=== PATIENT | female | born 1995 | race Caucasian/White ===

== ENCOUNTER 2017-09-13 15:00 | Emergency (ER) | payer OTHER ==
[2017-09-13] MEDS ORDERED: NA CHLORIDE 0.9% 1,000 ML ONE (15:54)
[2017-09-13] MEDS ORDERED: ONDANSETRON 4 MG/2 ML VIAL ONE (16:13)
[2017-09-13 16:14] LABS: Absolute Lymphocytes (CBC) 1.3 K/uL (0.7-4.9); Absolute Monocytes 0.7 K/uL (0.1-1.3); Absolute Neutrophil 6.5 K/uL (1.8-8.0); Basophils % 0.3 % (0-1.3); Eosinophils % 0.3 % (0-4.4); Hematocrit 38.1 % (36.0-45.0); Lymphocytes % 15.7 % (15.3-44.8); MCH 28.1 pg (27.0-35.0); MCV 82.2 fL (80-100); MPV 7.6 fL (7.6-11.3); Monocytes % 8.1 % (3.3-12.3); RBC Red Blood Cell Count 4.64 M/uL (3.86-4.86)
[2017-09-13 16:42] LABS: Urine Blood 2+ (NEG); Urine Glucose NEGATIVE (NEG); Urine Protein TRACE (NEG); Urine Specific Gravity 1.025 (1.005-1.030); Urine pH 5.5 (5.0-7.0)
[2017-09-13 16:51] LABS: Potassium 3.7 mmol/L (3.5-5.1)
--- NOTE | 2017-09-13 17:15 | RAD REPORT ---
EXAM DESCRIPTION: US - TRANSVAG OB - 09/13/2017 4:50 pm CLINICAL HISTORY: Abd cramping, ;Vaginal bleeding COMPARISON: None FINDINGS: A single gestational sac is seen within the uterus. The shape of the sac is within normal limits for gestational age. Within the sac is a single pole with crown-rump length of 3 mm, cor relating to estimated gestational age of 5 weeks 6 days gestational age. Estimated date of delivery i s 05/10/2018. Heart rate is 95 BPM.. The maternal adnexa and ovaries are within normal limits. Normal Doppler blood flow was demonstrated to both ovaries. A moderate subchorionic bleed is present measuring 20 x 11 x 8 mm about the posterior aspect of the g estational sac. IMPRESSION: Single live early intrauterine gestation with estimated gestational age of 5 weeks 6 day s, ELENA 05/10/2018. Moderate subchorionic bleed is present.
--- NOTE | 2017-09-13 17:23 | ER ---
Nurse's Notes [facility] Name: Malini Kelley Age: 22 yrs Sex: Female : 1995 Arrival Date: 09/13/2017 Time: 15:02 Bed 28 Private MD: None, None Diagnosis: SUBCHORIONIC HEMORRHAGE; related conditions, unspecified, first trimester Presentation: 09/13 15:07 Presenting complaint: Patient states: LMP- 09/04/17; i noticed bleeding that started an hj hour ago, in between pink and dark red blood, reports ABD cramping; reports nausea;. Transition of care: patient was not received from another setting of care. Onset of symptoms was September 13, 2017. Risk Assessment: Do you want to hurt yourself or someone else? Patient reports no desire to harm self or others. Initial Sepsis Screen: Does the patient meet any 2 criteria? No. Patient's initial sepsis screen is negative. Does the patient have a suspected source of infection? No. Patient's initial sepsis screen is negative. Care prior to arrival: None. 15:07 Method Of Arrival: Ambulatory 15:07 Acuity: MICHELLE 3 hj Triage Assessment: 15:09 General: Appears in no apparent distress. uncomfortable, slender, Behavior is calm, hj cooperative, appropriate for age. Pain: Complains of pain in abdomen. : Reports vaginal bleeding that is. 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 - Social history:: Smoking status: Patient/guardian denies using tobacco, Patient/guardian denies using alcohol. - Ebola Screening: : Patient negative for fever greater than or equal to 101.5 degrees Fahrenheit, and additional compatible Ebola Virus Disease symptoms Patient denies exposure to infectious person Patient denies travel to an Ebola-affected area in the 21 days before illness onset. - Family history:: not pertinent. - Hospitalizations: : No recent hospitalization is reported. - History obtained from: friend. Screenin:09 Abuse screen: Denies threats or abuse. Denies injuries from another. Nutritional hj screening: No deficits noted. Tuberculosis screening: No symptoms or risk factors identified. Fall Risk None identified. Assessment: 16:13 Obstetrical Assessment: General assessment: awake and alert, skin warm and dry. mg2 General: Appears in no apparent distress. comfortable, Behavior is calm, cooperative. Pain: Denies pain. Neuro: Level of Consciousness is awake, alert, obeys commands, Oriented to person, place, time, situation. Cardiovascular: Capillary refill < 3 seconds Patient's skin is warm and dry. Respiratory: Airway is patent Respiratory effort is even, unlabored, Respiratory pattern is regular, symmetrical. GI: Reports nausea. : Reports vaginal bleeding that is spotty. EENT: No signs and/or symptoms were reported regarding the EENT system. Derm: Skin is intact, Skin is pink, warm \T\ dry. normal. Musculoskeletal: Circulation, motion, and sensation intact. 16:57 Reassessment: Patient and/or family updated on plan of care and expected duration. Pain tl3 level reassessed. Patient is alert, oriented x 3, equal unlabored respirations, skin warm/dry/pink. pt just returned from Ultra sound, IV flushed, no needs at this time. Vital Signs: 15:10 BP 136 / 86; Pulse 126; Resp 18; Temp 101.0(TE); Pulse Ox 100% on R/A; Weight 49.44 kg; Height 5 ft. 6 in. (167.64 cm); Pain 1/10; 16:15 BP 114 / 61; Pulse 74; Resp 18; Pulse Ox 100% on R/A; Pain 0/10; mg2 16:56 BP 121 / 69; Pulse 93; Resp 18; Pulse Ox 100% ; tl3 17:15 BP 114 / 70; Pulse 86; Resp 18; Temp 99(O); Pulse Ox 100% ; Pain 0/10; mg2 15:10 Body Mass Index 17.59 (49.44 kg, 167.64 cm) Vitals: 17:31 Heart Tones taken with ob ultrasound. mg2 ED Course: 15:02 Patient arrived in ED. mr 15:02 None, None is Private Physician. mr 15:09 Triage completed. hj 15:09 Arm band placed on right wrist. hj 15:11 Patient has correct armband on for positive identification. Placed in gown. Bed in low hj position. Call light in reach. Side rails up X 1. Adult w/ patient. 15:15 Guerrero Gramajo, RN is Primary Nurse. mg2 15:22 Reny Cary FNP [facility]. kav 15:22 Shaq Aldrich MD is Attending Physician. kav 16:13 Inserted saline lock: 20 gauge in left antecubital area, using aseptic technique. Blood mg2 collected. 16:31 Patient taken to ultrasound. via wheelchair. cy 16:50 TRANSVAG OB In Process Unspecified. EDMS 16:56 Patient moved back from ultrasound. tl3 17:22 Samantha Tiwari MD is Referral Physician. kav 17:30 No provider procedures requiring assistance completed. IV discontinued, intact, mg2 bleeding controlled, No redness/swelling at site. Pressure dressing applied. Administered Medications: 15:55 Drug: NS 0.9% 1000 ml Route: IV; Rate: 1 bolus; Site: left antecubital; mg2 17:20 Follow up: Response: No adverse reaction; IV Status: Completed infusion mg2 16:13 Drug: Zofran 4 mg Route: IVP; Site: left antecubital; mg2 17:20 Follow up: Response: No adverse reaction; Nausea is decreased mg2 Point of Care Testing: Urine : 17:30 hCG Reading: Positive; mg2 Outcome: 17:22 Discharge ordered by . ka 17:30 Discharged to home ambulatory, with family. mg2 17:30 Condition: stable 17:30 Discharge instructions given to patient, family, Instructed on discharge instructions, follow up and referral plans. Demonstrated understanding of instructions, follow-up care. 17:37 Patient left the ED. mg2 Signatures: Dispatcher [employer] EDWA Reny Cary FNP FNP kav Rivera, Maria mr FischerBulmaro RN RN Syed Garza Tammy, RN RN tl3 Guerrero Gramajo, DYLAN RN mg2 Corrections: (The following items were deleted from the chart) 15:11 15:10 Pulse 126bpm; Resp 18bpm; Pulse Ox 100% RA; Temp 101.0F Temporal; 49.44 kg; hj Height 5 ft. 6 in.; BMI: 17.5; Pain 1/10; hj
--- NOTE | 2017-09-13 17:23 | EDPHYS ---
Physician Documentation [facility] Name: Malini Kelley Age: 22 yrs Sex: Female : 1995 Arrival Date: 09/13/2017 Time: 15:02 Bed 28 Private MD: None, None ED Physician Shaq Aldrich HPI: 09/13 15:22 This 22 yrs old Female presents to ER via Ambulatory with complaints of kav Vaginal Bleeding, + Preg <12wks. 15:42 The patient presents to the emergency department with vaginal bleeding, that is kav moderate. course: care: none, Leakage of Fluid: none appreciated, Ultrasound: the patient has not had an ultrasound, Risk/complications: no obvious risks or complications are appreciated. Previous pregnancies: in previous pregnancies patient has had vaginal delivery. Associated signs and symptoms: Pertinent positives: nausea, vaginal bleeding. The patient has not experienced similar symptoms in the past. The patient has not recently seen a physician. 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 - Social history:: Smoking status: Patient/guardian denies using tobacco, Patient/guardian denies using alcohol. - Ebola Screening: : Patient negative for fever greater than or equal to 101.5 degrees Fahrenheit, and additional compatible Ebola Virus Disease symptoms Patient denies exposure to infectious person Patient denies travel to an Ebola-affected area in the 21 days before illness onset. - Family history:: not pertinent. - Hospitalizations: : No recent hospitalization is reported. - History obtained from: friend. ROS: 15:47 Constitutional: Negative for fever, chills, and weight loss, Eyes: Negative for injury, kav pain, redness, and discharge, ENT: Negative for injury, pain, and discharge, Neck: Negative for injury, pain, and swelling, Cardiovascular: Negative for chest pain, palpitations, and edema, Respiratory: Negative for shortness of breath, cough, wheezing, and pleuritic chest pain, Abdomen/GI: Negative for abdominal pain, nausea, vomiting, diarrhea, and constipation, Back: Negative for injury and pain, MS/Extremity: Negative for injury and deformity, Skin: Negative for injury, rash, and discoloration, Neuro: Negative for headache, weakness, numbness, tingling, and seizure, Psych: Negative for depression, anxiety, suicide ideation, homicidal ideation, and hallucinations, Allergy/Immunology: Negative for hives, rash, and allergies, Endocrine: Negative for neck swelling, polydipsia, polyuria, polyphagia, and marked weight changes, Hematologic/Lymphatic: Negative for swollen nodes, abnormal bleeding, and unusual bruising. 15:47 : Positive for vaginal bleeding. Exam: 15:47 Constitutional: This is a well developed, well nourished patient who is awake, alert, kav and in no acute distress. Head/Face: Normocephalic, atraumatic. Eyes: Pupils equal round and reactive to light, extra-ocular motions intact. Lids and lashes normal. Conjunctiva and sclera are non-icteric and not injected. Cornea within normal limits. Periorbital areas with no swelling, redness, or edema. ENT: Nares patent. No nasal discharge, no septal abnormalities noted. Tympanic membranes are normal and external auditory canals are clear. Oropharynx with no redness, swelling, or masses, exudates, or evidence of obstruction, uvula midline. Mucous membranes moist. Neck: Trachea midline, no thyromegaly or masses palpated, and no cervical lymphadenopathy. Supple, full range of motion without nuchal rigidity, or vertebral point tenderness. No Meningismus. Chest/axilla: Normal chest wall appearance and motion. Nontender with no deformity. No lesions are appreciated. Cardiovascular: Regular rate and rhythm with a normal S1 and S2. No gallops, murmurs, or rubs. Normal PMI, no JVD. No pulse deficits. Respiratory: Lungs have equal breath sounds bilaterally, clear to auscultation and percussion. No rales, rhonchi or wheezes noted. No increased work of breathing, no retractions or nasal flaring. Abdomen/GI: Soft, non-tender, with normal bowel sounds. No distension or tympany. No guarding or rebound. No evidence of tenderness throughout. Back: No spinal tenderness. No costovertebral tenderness. Full range of motion. Skin: Warm, dry with normal turgor. Normal color with no rashes, no lesions, and no evidence of cellulitis. MS/ Extremity: Pulses equal, no cyanosis. Neurovascular intact. Full, normal range of motion. Neuro: Awake and alert, GCS 15, oriented to person, place, time, and situation. Cranial nerves II-XII grossly intact. Motor strength 5/5 in all extremities. Sensory grossly intact. Cerebellar exam normal. Normal gait. Psych: Awake, alert, with orientation to person, place and time. Behavior, mood, and affect are within normal limits. 15:47 : Sexual behavior: the patient is sexually active, and reports a single partner. Vital Signs: 15:10 BP 136 / 86; Pulse 126; Resp 18; Temp 101.0(TE); Pulse Ox 100% on R/A; Weight 49.44 kg; hj Height 5 ft. 6 in. (167.64 cm); Pain 1/10; 16:15 BP 114 / 61; Pulse 74; Resp 18; Pulse Ox 100% on R/A; Pain 0/10; mg2 16:56 BP 121 / 69; Pulse 93; Resp 18; Pulse Ox 100% ; tl3 17:15 BP 114 / 70; Pulse 86; Resp 18; Temp 99(O); Pulse Ox 100% ; Pain 0/10; mg2 15:10 Body Mass Index 17.59 (49.44 kg, 167.64 cm) MDM: 15:37 Medical screening is not applicable. [facility] 15:47 Data reviewed: vital signs, nurses notes. ka 16:46 ED course: awaiting lab results and vaginal US probe study. ka 16:49 ED course: received reports from Henable tech: 5 weeks 6 days with HR 95 bpm \\T\\ subchorionic kav bleed right inferior approximately 2 cm. 17:04 Physician consultation: Samantha Tiwari MD was called at 17:04. [facility] 17:10 Physician consultation: was contacted at 17:10, regarding patient's condition, dr. hudson lawernce recommends "...follow up with your obgyn/[facility] in 1 week for further evaluation and treatment and for a follow up ultra sound". 09/13 15:34 Order name: Urine Dipstick--Ancillary (enter results); Complete Time: 16:45 eb 09/13 15:34 Order name: Urine --Ancillary (enter results); Complete Time: 16:45 eb 09/13 15:36 Order name: Abo/rh Typing; Complete Time: 17:13 kav 09/13 15:36 Order name: HCG-Quantitative; Complete Time: 17:13 kav 09/13 15:36 Order name: Basic Metabolic Panel; Complete Time: 17:13 kav 09/13 15:36 Order name: CBC with Diff; Complete Time: 16:30 kav 09/13 15:12 Order name: Urine Dipstick-Ancillary (obtain specimen); Complete Time: 15:55 hj 09/13 15:12 Order name: Urine Test (obtain specimen); Complete Time: 15:55 hj 09/13 15:36 Order name: IV Saline Lock; Complete Time: 15:55 kav 09/13 15:36 Order name: Labs collected and sent; Complete Time: 15:55 kav 09/13 16:32 Order name: TRANSVAG OB; Complete Time: 17:20 EDMS 09/13 15:36 Order name: NPO; Complete Time: 15:55 kav Administered Medications: 15:55 Drug: NS 0.9% 1000 ml Route: IV; Rate: 1 bolus; Site: left antecubital; mg2 17:20 Follow up: Response: No adverse reaction; IV Status: Completed infusion mg2 16:13 Drug: Zofran 4 mg Route: IVP; Site: left antecubital; mg2 17:20 Follow up: Response: No adverse reaction; Nausea is decreased mg2 Point of Care Testing: Urine : 17:30 hCG Reading: Positive; mg2 Disposition: 09/13/17 17:22 Discharged to Home. Impression: SUBCHORIONIC HEMORRHAGE, related conditions, unspecified, first trimester. - Condition is Stable. - Discharge Instructions: First Trimester of , [id number], Subchorionic Hematoma, Abdominal Pain During , Xeoy-pt-Wgry. - Medication Reconciliation Form, Thank You Letter, Antibiotic Education, Prescription Opioid Use form. - Follow up: Mini Rekhi; When: 5 - 6 days; Reason: Recheck today's complaints, Continuance of care, Re-evaluation by your physician. - Problem is new. - Symptoms have improved. - Notes: F/U WITH YOUR OBGYN/[facility] IN 3-5 DAYS FOR POST-ED EVALUATION AND TREATMENT AND FOR REPEAT ULTRASOUND AVOID STRENUOUS ACTIVITY UNTIL F/U APPT WITH OBGYN Addendum: 09/20/2017 08:00 Co-signature as Attending Physician, Shaq Aldrich MD I agree with the assessment and k dr plan of care. Signatures: Dispatcher [employer] [facility] Shaq Aldrich MD MD kdr Vern, Katherine, MINE ENGINEER MINE ENGINEER kaBulmaro Cai, RN RN hj Guerrero Gramajo, RN RN mg2 Corrections: (The following items were deleted from the chart) 09/13 16:32 15:53 Transvaginal Study (Probe)+US.RAD.BRZ ordered. [facility] 17:37 17:22 09/13/2017 17:22 Discharged to Home. Impression: SUBCHORIONIC HEMORRHAGE; mg2 related conditions, unspecified, first trimester. Condition is Stable. Discharge Instructions: First Trimester of , Ifsy-on-Nykw, Subchorionic Hematoma, Abdominal Pain During , Kovl-ez-Rwat. Forms are Medication Reconciliation Form, Thank You Letter, Antibiotic Education, Prescription Opioid Use. Follow up: Mini Rekhi; When: 5 - 6 days; Reason: Recheck today's complaints, Continuance of care, Re-evaluation by your physician. Problem is new. Symptoms have improved. kav
== END 2017-09-13 17:37 | disposition home or self-care (01) ==
LOC: ER 15:00
DX: O20.9 Hemorrhage in early pregnancy, unspecified (principal); Z3A.01 Less than 8 weeks gestation of pregnancy
CPT/HCPCS: 36415; 76813; 80048; 81003; 81025; 84702; 85025; 86900; 86901; 96361; 96374; 99284; J2405; J7030

== ENCOUNTER 2018-10-06 10:07 | Emergency (ER) | payer BC, OTHER, SELFPAY ==
--- OUTSIDE RECORDS SUMMARY | 2018-10-06 10:10 | XMS REPORT ---
:1995 [facility] Address [address] [place] [address] Dr. Fernandez [address] [place] [id number] Care Team Providers Name Role Phone Unavailable Unavailable Unavailable Problems This patient has no known problems. Allergies, Adverse Reactions, Alerts This patient has no known allergies or adverse reactions. Medications This patient has no known medications.
[2018-10-06 11:24] LABS: BUN Blood Urea Nitrogen 8 mg/dL (7-18); Bicarbonate 24 mmol/L (21-32); Glucose Level 93 mg/dL (74-106); HCG, Quantitative 10 mIU/mL (1-3); Potassium 3.9 mmol/L (3.5-5.1); Sodium Level 141 mmol/L (136-145)
[2018-10-06 11:29] LABS: Absolute Lymphocytes (CBC) 1.1 K/uL (0.7-4.9); Basophils % 0.4 % (0-1.3); Hematocrit 37.3 % (36.0-45.0); Lymphocytes % 19.2 % (15.3-44.8); MPV 7.8 fL (7.6-11.3); RBC Red Blood Cell Count 4.94 M/uL (3.86-4.86)
[2018-10-06 11:56] LABS: Urine Blood 3+ (NEG); Urine Glucose NEGATIVE (NEG); Urine Protein NEGATIVE (NEG); Urine Specific Gravity 1.015 (1.005-1.030); Urine pH 5.5 (5.0-7.0)
--- NOTE | 2018-10-06 12:31 | RAD REPORT ---
EXAM DESCRIPTION: US - Transvaginal OB - 10/06/2018 12:21 pm CLINICAL HISTORY: with vaginal bleeding COMPARISON: None. FINDINGS: The uterus 7 x 5 x 6 centimeters. The endometrial stripe measures 7 millimeters. A gestat ional sac is not seen. Ovaries are normal in size and echotexture.. An adnexal mass is not noted. No significant free fluid IMPRESSION: Nonvisualization of a gestational sac within the endometrium. These findings could represent an early intrauterine in which the gestational sac is not se en. and even an ectopic can also result in this appearance. This all should be cor related clinically and with serial beta HCG levels. Followup endovaginal sonogram in 1 week recommend ed
--- NOTE | 2018-10-06 12:53 | EDPHYS ---
[facility] Name: Malini Kelley Age: 23 yrs Sex: Female : 1995 Arrival Date: 10/06/2018 Time: 10:08 Bed 19 Private MD: ED Physician Stalin Barry HPI: 10/06 11:42 This 23 yrs old Female presents to ER via Ambulatory with complaints of snw Vaginal Bleeding, + Preg <12wks. 11:42 The patient presents with vaginal bleeding that is. Onset: The symptoms/episode snw began/occurred suddenly, last night. Modifying factors: The symptoms are alleviated by nothing, the symptoms are aggravated by nothing. Associated signs and symptoms: The patient has no apparent associated signs or symptoms. Severity of symptoms: At their worst the symptoms were mild. The patient has not experienced similar symptoms in the past. The patient has not recently seen a physician. pt approximately 4 weeks , started spotting last pm, painless. Today UPT negative, qHCG 10. 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 - Social history:: Smoking status: Patient/guardian denies using tobacco. - Ebola Screening: : Patient denies exposure to infectious person Patient denies travel to an Ebola-affected area in the 21 days before illness onset. ROS: 11:41 Constitutional: Negative for fever, chills, and weight loss, Eyes: Negative for injury, snw pain, redness, and discharge, ENT: Negative for injury, pain, and discharge, Neck: Negative for injury, pain, and swelling, Cardiovascular: Negative for chest pain, palpitations, and edema, Respiratory: Negative for shortness of breath, cough, wheezing, and pleuritic chest pain, Abdomen/GI: Negative for abdominal pain, nausea, vomiting, diarrhea, and constipation, Back: Negative for injury and pain, MS/Extremity: Negative for injury and deformity, Skin: Negative for injury, rash, and discoloration, Neuro: Negative for headache, weakness, numbness, tingling, and seizure. 11:41 : Positive for vaginal bleeding, scant spotting yesterday with more bleeding today, no clots, no pain. Exam: 11:41 Constitutional: This is a well developed, well nourished patient who is awake, alert, snw and in no acute distress. Head/Face: Normocephalic, atraumatic. Eyes: Pupils equal round and reactive to light, extra-ocular motions intact. Lids and lashes normal. Conjunctiva and sclera are non-icteric and not injected. Cornea within normal limits. Periorbital areas with no swelling, redness, or edema. ENT: Nares patent. No nasal discharge, no septal abnormalities noted. Tympanic membranes are normal and external auditory canals are clear. Oropharynx with no redness, swelling, or masses, exudates, or evidence of obstruction, uvula midline. Mucous membranes moist. Neck: Trachea midline, no thyromegaly or masses palpated, and no cervical lymphadenopathy. Supple, full range of motion without nuchal rigidity, or vertebral point tenderness. No Meningismus. Chest/axilla: Normal chest wall appearance and motion. Nontender with no deformity. No lesions are appreciated. Cardiovascular: Regular rate and rhythm with a normal S1 and S2. No gallops, murmurs, or rubs. Normal PMI, no JVD. No pulse deficits. Respiratory: Lungs have equal breath sounds bilaterally, clear to auscultation and percussion. No rales, rhonchi or wheezes noted. No increased work of breathing, no retractions or nasal flaring. Abdomen/GI: Soft, non-tender, with normal bowel sounds. No distension or tympany. No guarding or rebound. No evidence of tenderness throughout. Back: No spinal tenderness. No costovertebral tenderness. Full range of motion. Skin: Warm, dry with normal turgor. Normal color with no rashes, no lesions, and no evidence of cellulitis. MS/ Extremity: Pulses equal, no cyanosis. Neurovascular intact. Full, normal range of motion. Neuro: Awake and alert, GCS 15, oriented to person, place, time, and situation. Cranial nerves II-XII grossly intact. Motor strength 5/5 in all extremities. Sensory grossly intact. Cerebellar exam normal. Normal gait. Psych: Awake, alert, with orientation to person, place and time. Behavior, mood, and affect are within normal limits. Vital Signs: 10:29 BP 145 / 88; Pulse 84; Resp 16; Temp 98.4(TE); Pulse Ox 100% on R/A; Weight 57.61 kg; ss Height 5 ft. 6 in. (167.64 cm); Pain 0/10; 12:15 BP 118 / 85; Pulse 105; Resp 15 S; Temp 98.8; Pulse Ox 99% on R/A; ca1 13:09 BP 118 / 85; Pulse 98; Resp 18 S; Pulse Ox 100% ; ca1 10:29 Body Mass Index 20.50 (57.61 kg, 167.64 cm) ss MDM: 10:51 Patient medically screened. snw 12:52 Data reviewed: vital signs, nurses notes. Data interpreted: Pulse oximetry: on room air snw is 99 %. Counseling: I had a detailed discussion with the patient and/or guardian regarding: the historical points, exam findings, and any diagnostic results supporting the discharge/admit diagnosis, lab results, radiology results, the need for outpatient follow up, to return to the emergency department if symptoms worsen or persist or if there are any questions or concerns that arise at home. Special discussion: Based on the history and exam findings, there is no indication for further emergent testing or inpatient evaluation. I discussed with the patient/guardian the need to see the OB Gyne specialist for further evaluation of the symptoms. 10/06 10:39 Order name: Quantitative Hcg; Complete Time: 11:25 snw 10/06 10:39 Order name: Abo/rh Typing; Complete Time: 11:14 snw 10/06 10:39 Order name: Basic Metabolic Panel; Complete Time: 11:25 snw 10/06 10:39 Order name: CBC with Diff; Complete Time: 11:31 snw 10/06 11:18 Order name: Urine Dipstick--Ancillary (enter results); Complete Time: 12:02 eb 10/06 10:39 Order name: Urine Test (obtain specimen); Complete Time: 11:16 snw 10/06 10:39 Order name: IV Saline Lock; Complete Time: 10:58 snw 10/06 10:39 Order name: Labs collected and sent; Complete Time: 10:58 snw 10/06 10:39 Order name: NPO; Complete Time: 10:58 snw 10/06 10:39 Order name: Urine Dipstick-Ancillary (obtain specimen); Complete Time: 11:15 snw 10/06 11:18 Order name: Urine --Ancillary (enter results); Complete Time: 12:02 eb 10/06 11:30 Order name: US Transvaginal Ob; Complete Time: 12:49 snw Administered Medications: No medications were administered Disposition: 10/06/18 12:51 Discharged to Home. Impression: related conditions, unspecified, Threatened . - Condition is Stable. - Discharge Instructions: Threatened Miscarriage, Vaginal Bleeding During , First Trimester, First Trimester of , Pelvic Rest. - Prescriptions for Vitamin 27- 0.8 mg Oral Tablet - take 1 tablet by ORAL route once daily; 60 tablet. - Medication Reconciliation Form, Thank You Letter, Antibiotic Education, Prescription Opioid Use form. - Follow up: Private Physician; When: 2 - 3 days; Reason: Recheck today's complaints, Continuance of care, Re-evaluation by your physician. Follow up: Emergency Department; When: As needed; Reason: Worsening of condition. Addendum: 10/08/2018 15:22 Co-signature as Attending Physician, Stalin Barry MD. g s Signatures: Dispatcher [employer] EDNJ Usha Morales, CEMENT GUN OPERATOR-C CEMENT GUN OPERATOR-Csnw Yasmine Kelly RN RN ss Wise, Tara, RN RN tw2 Stalin Barry MD MD Ruma Araya, RN RN ca1 Corrections: (The following items were deleted from the chart) 10/06 10:47 10:32 Home Meds: None; tw2 11:21 11:14 TEST, SERUM+SC.LAB.BRZ ordered. EDNJ EDMS 11:58 10:40 Transvaginal Ob+US.RAD.BRZ ordered. EDNJ EDMS 13:22 12:51 10/06/2018 12:51 Discharged to Home. Impression: related conditions, ca1 unspecified; Threatened . Condition is Stable. Forms are Medication Reconciliation Form, Thank You Letter, Antibiotic Education, Prescription Opioid Use. Follow up: Private Physician; When: 2 - 3 days; Reason: Recheck today's complaints, Continuance of care, Re-evaluation by your physician. Follow up: Emergency Department; When: As needed; Reason: Worsening of condition. snw
--- NOTE | 2018-10-06 12:53 | ER ---
Nurse's Notes [facility] Name: Malini Kelley Age: 23 yrs Sex: Female : 1995 Arrival Date: 10/06/2018 Time: 10:08 Bed 19 Private MD: Diagnosis: related conditions, unspecified;Threatened Presentation: 10/06 10:30 Presenting complaint: Patient states: vaginal spotting that began yesterday evening, ss then stopped, but started again this morning and became a little heavier this morning, but not as heavy as her normal menstrual cycle. Pt reports she is approximately 4 weeks . Transition of care: patient was not received from another setting of care. Onset of symptoms was October 05, 2018. Risk Assessment: Do you want to hurt yourself or someone else? Patient reports no desire to harm self or others. Initial Sepsis Screen: Does the patient meet any 2 criteria? No. Patient's initial sepsis screen is negative. Does the patient have a suspected source of infection? No. Patient's initial sepsis screen is negative. Care prior to arrival: None. 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 - Social history:: Smoking status: Patient/guardian denies using tobacco. - Ebola Screening: : Patient denies exposure to infectious person Patient denies travel to an Ebola-affected area in the 21 days before illness onset. Screenin:46 Abuse screen: Denies threats or abuse. Nutritional screening: No deficits noted. tw2 Tuberculosis screening: No symptoms or risk factors identified. Fall Risk None identified. Assessment: 11:10 General: Appears in no apparent distress. slender, well groomed, Behavior is calm, tw2 cooperative, appropriate for age. Pain: Denies pain. Neuro: Level of Consciousness is awake, alert, obeys commands, Oriented to person, place, time, situation. Cardiovascular: Heart tones S1 S2 Patient's skin is warm and dry. Respiratory: Airway is patent Respiratory effort is even, unlabored, Respiratory pattern is regular, symmetrical, Breath sounds are clear bilaterally. GI: Abdomen is flat, Bowel sounds present X 4 quads. : Reports vaginal bleeding that is heavy flow. EENT: No signs and/or symptoms were reported regarding the EENT system. Derm: No signs and/or symptoms reported regarding the dermatologic system. Musculoskeletal: Range of motion: intact in all extremities. 12:15 Reassessment: Patient appears in no apparent distress at this time. Patient and/or ca1 family updated on plan of care and expected duration. Pain level reassessed. Patient is alert, oriented x 3, equal unlabored respirations, skin warm/dry/pink. 13:09 Reassessment: Patient appears in no apparent distress at this time. Patient and/or ca1 family updated on plan of care and expected duration. Pain level reassessed. Patient is alert, oriented x 3, equal unlabored respirations, skin warm/dry/pink. Vital Signs: 10:29 BP 145 / 88; Pulse 84; Resp 16; Temp 98.4(TE); Pulse Ox 100% on R/A; Weight 57.61 kg; ss Height 5 ft. 6 in. (167.64 cm); Pain 0/10; 12:15 BP 118 / 85; Pulse 105; Resp 15 S; Temp 98.8; Pulse Ox 99% on R/A; ca1 13:09 BP 118 / 85; Pulse 98; Resp 18 S; Pulse Ox 100% ; ca1 10:29 Body Mass Index 20.50 (57.61 kg, 167.64 cm) ss Vitals: 10:46 Heart Tones n/a <4 wks. tw2 ED Course: 10:08 Patient arrived in ED. as 10:29 Arm band placed on left wrist. ss 10:32 Triage completed. ss 10:37 Usha Morales FNP-C is PHCP. snw 10:37 Stalin Barry MD is Attending Physician. snw 10:38 Bed in low position. Call light in reach. tw2 10:46 Haley Navarro RN is Primary Nurse. tw2 10:52 Initial lab(s) drawn, by me, sent to lab. Inserted saline lock: 22 gauge in right dh3 antecubital area, using aseptic technique. Blood collected. 11:09 Radiology exam delayed due to test not completed at this time. 3 11:16 Urine collected: clean catch specimen, cloudy. 3 11:54 Report given to DYLAN Hendrix. tw2 12:20 US Transvaginal Ob In Process Unspecified. EDMS 12:23 Ultrasound completed. Patient tolerated well. sg3 13:11 No provider procedures requiring assistance completed. IV discontinued, intact, ca1 bleeding controlled, No redness/swelling at site. Pressure dressing applied. Administered Medications: No medications were administered Outcome: 12:51 Discharge ordered by MD. snw 13:22 Discharged to home ambulatory, with family. ca1 13:22 Condition: stable 13:22 Discharge instructions given to patient, Instructed on discharge instructions, follow up and referral plans. medication usage, Demonstrated understanding of instructions, follow-up care, medications, Prescriptions given X 1. 13:22 Patient left the ED. ca1 Signatures: Dispatcher [employer] EDSD Usha Morales, RACKING MACHINE OPERATOR-C RACKING MACHINE OPERATOR-Wendy Chaidez Shelby, RN RN Haley Navarro RN RN 2 Zoe Vanegas [facility] Nataliia Harvey 3 Ruma Araya RN RN ca1 Corrections: (The following items were deleted from the chart) 10:47 10:32 Home Meds: None; [facility]
== END 2018-10-06 13:22 | disposition home or self-care (01) ==
LOC: ER 10:07
DX: O20.0 Threatened abortion (principal); Z3A.01 Less than 8 weeks gestation of pregnancy
CPT/HCPCS: 36415; 76817; 80048; 81003; 81025; 84702; 85025; 86900; 86901; 99284

== ENCOUNTER 2022-03-29 13:53 | Emergency (ER) | payer BC ==
--- OUTSIDE RECORDS SUMMARY | 2022-03-29 13:57 | XMS REPORT | Continuity of Care Document ---
:1995 Author Organization [facility] t Address [address] [place] [address] Care Team Providers Name Role Phone Teresa Regan Primary Care Physician [phone] G_Pappas Attending Clinician Unavailable White_M Attending Clinician Unavailable Rutledge_L Attending Clinician Unavailable JACOB CHRISTIANSON Attending Clinician Unavailable Katerina Peters MD Attending Clinician Nicky Ferro Attending Clinician NICKY ZAMORA Attending Clinician Unavailable KATERINA PETERS Attending Clinician Unavailable Unknown, Attending Attending Clinician Unavailable Doctor Unassigned, [place] Attending Clinician Unavailable Raju_P Attending Clinician Unavailable Visit, Frank-Rmchmaria del rosario Nurse Attending Clinician Unavailable Teresa Regan Attending Clinician [phone] G_Pappas Admitting Clinician Unavailable White_M Admitting Clinician Unavailable Rutledge_L Admitting Clinician Unavailable Raju_P Admitting Clinician Unavailable Payers Payer Name Policy Type Policy Number Effective Date Expiration Date S ang[place] [id number] 2018 00:00:00 [place] Problems Condition Condition Condition Status Onset Resolution Last Treating Co mments Source Name Details Category Date Date Treatment Clinician Date History of History of Problem Active [facility] 1-13 da hemorrhage Hemorrhage 00:00: Me dical 00 Group Bacterial Bacterial Problem Active [facility] vaginosis Vaginosis 9-15 da in in 00:00: Medical 00 Grou p Dyspareuni Dyspareuni Problem Active [facility] a a 9-04 da 00:00: Medical 00 Group Moderate Moderate Problem Active [facility] [facility] hyperemesi Hyperemesi 8-17 da s s 00:00: Medical gravidarum Gravidarum 00 Gr oup Mild Mild Problem Active [place] hyperemesi Hyperemesi 8-14 da s-not s-not 00:00: Medical delivered Delivered 00 Grou p Disease Active 2019-0 Univers (spontaneo (spontaneo 3-23 it y of [place] vaginal [place] vaginal [place] delivery[place] delivery[place] 00 [facility] Single Single Disease Active 2019-0 Univers live live 3-23 it y of 00:00: [place] 00 [facility] Anemia, Anemia, Disease Active 2019-0 Univers 3-23 it y of 00:00: [place] 00 [facility] Disease Active 2019-0 Univers (spontaneo (spontaneo 3-23 it y of [place] vaginal us vaginal [place]: [place] delivery[place] delivery[place] 00 [facility] Anemia, Anemia, Disease Active 2019-0 Univers 3-23 it y of 00:00: [place] 00 [facility] 39 weeks 39 weeks Disease Active 2019-0 Unive rs gestation gestation 3-22 ity of of of 00:00: [place] 00 [facility] Indication Indication Disease Active 2019-0 U nivers for care for care 3-22 ity of in labor in labor 00:00: [place] and and Medical delivery, delivery, Bran ch antepartum antepartum Indication Indication Disease Active 2019-0 U nivers for care for care 3-22 ity of in labor in labor 00:00: [place] and and Medical delivery, delivery, Bran ch antepartum antepartum Anemia of Anemia of Disease Active 2017-02 Uni vers mother in mother in 2-21 ity of , , 00:[place]: [place] antepartum antepartum 00 Me dical Branch 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 rs veins of veins of 2-20 ity of vulva and vulva and 00:[place] per[place]ine[place], 00 [facility] antepartum antepartum Br anch Low-lying Low-lying Disease Active 2017-02 Uni vers placenta placenta 2-20 ity of in second in second 00:[place] trimester trimester 00 [facility] Branch Multiparit Multiparit Disease Active U nivers y y 8-28 ity of 00:00: [place] 00 [facility] Branch Family Family Disease Active Overview: Univer s history of history of 7-20 Formattin ity of congenital congenital 00:00: g of this [place] anomalies anomalies 00 note [facility] might be Branch different from the original. Fohansel's brother has a child with autism Cystic Cystic Disease Active Univers fibrosis fibrosis 7-20 ity of gene gene 00:00: [place] carrier carrier 00 Medical Branch Supervisio Supervisio Disease Active U nivers n of high n of high 7-20 ity of risk risk 00:00: [place] , , 00 Me dical antepartum antepartum Br anch History of History of Disease Active U nivers 7-20 it y of depression depression 00:00: [place] , , 00 Medical currently currently Bran ch Allergies, Adverse Reactions, Alerts Allergy Allergy Status Severity Reaction(s) Onset Inactive Treating Comm ents Source Name Type Date Date Clinician NO KNOWN Drug Active Univers ALLERGIE Class ity of S [facility] Social History Social Habit Start Date Stop Date Quantity Comments Source History SDKS University o f Alcohol Frequency [place] M edical Branch History SDKS University o f Alcohol Std [place] Medical Drinks Branch History [facility] University o f Alcohol Binge [place] Medic al Branch Exposure to 2021-10-26 2021-11-05 Not sure University of SARS-CoV-2 00:00:00 09:07:00 [facility] (event) Branch Tobacco use and 2021-11-05 2021-11-05 Smokeless tobacco Un iversity of exposure 00:00:00 00:00:00 non-user [facility] Alcohol intake 2021-11-05 2021-11-05 Current drinker Unive rsity of 00:00:00 00:00:00 of alcohol [place] Medical (finding) Branch Alcohol Comment 2017-09-07 2017-09-07 socially Universit y of 00:00:00 00:00:00 [facility] Sex [birth year] [employer] 00:00:00 00:00:00 Hospital Smoking Status Start Date Stop Date Source Tobacco smoking consumption [facility] unknown Never smoked tobacco [facility] Medications Ordered Filled Start Stop Current Ordering Indication Dosage Frequency Signature Comments Components Source Medication Medication Date Date Medication? Clinician (SIG) Name Name cephALEXin 2021- No [id number] 250mg Take 1 Univers (KEFLEX) 11-08 capsule by ity of 250 mg 00:00: 04:59 mouth [place] capsule 00 :00 every 6 Medical (six) Branch hours for 5 days. Nitrofurant 2021- No [id number] 100mg Take 1 Univers oin&Nit. 11-05 capsule by ity of Macrocryst 00:00: 04:59 mouth in [place] 100 mg 00 :00 the Medical capsule morning Branch and 1 capsule in the evening. Do all this for 5 days. phenazopyri 2021- No [id number] 200mg Take 2 Univers dine 100 mg 11-05 tablets by i ty of tablet 00:00: 04:59 mouth in [place] 00 :00 the Medical morning Branch and 2 tablets at noon and 2 tablets in the evening. Do all this for 2 days. Nitrofurant 2021- No [id number] 100mg Take 1 Univers oin&Nit. 11-05 capsule by ity of Macrocryst 00:00: 00:00 [place] 100 mg 00 :00 the Medical capsule morning Branch and 1 capsule in the evening. Do all this for 5 days. ADVAIR Yes INHALE 1 Univers DISKUS 8-17 PUFF BY ity of 250-50 00:00: INHALATION [place] mcg/dose 00 ROUTE 2 Medical inhalation TIMES Branch disk EVERY DAY NEEDED ADVAIR Yes INHALE 1 Univers DISKUS 8-17 PUFF BY ity of 250-50 00:00: INHALATION [place] mcg/dose 00 ROUTE 2 Medical inhalation TIMES Branch disk EVERY DAY NEEDED benzonatate Yes [id number] 200mg Take 2 Univers 100 mg 5-23 capsules ity of capsule 00:00: by mouth [place] 00 every 8 Medical (eight) Branch hours as needed for Cough. guaiFENesin Yes [id number] 400mg Take 1 Univers 400 mg 5-23 tablet by ity of tablet 00:00: mouth [place] 00 every 4 Medical (four) Branch hours as needed for Cough. benzonatate Yes [id number] 200mg Take 2 Univers 100 mg 5-23 capsules ity of capsule 00:00: by mouth [place] 00 every 8 Medical (eight) Branch hours as needed for Cough. guaiFENesin Yes [id number] 400mg Take 1 Univers 400 mg 5-23 tablet by ity of tablet 00:00: mouth [place] 00 every 4 Medical (four) Branch hours as needed for Cough. benzonatate Yes [id number] 200mg Take 2 Univers 100 mg 5-23 capsules ity of capsule 00:00: by mouth [place] 00 every 8 Medical (eight) Branch hours as needed for Cough. guaiFENesin Yes [id number] 400mg Take 1 Univers 400 mg 5-23 tablet by ity of tablet 00:00: mouth [place] 00 every 4 Medical (four) Branch hours as needed for Cough. amoxicillin 2021- No [id number] 1{tbl} Take 1 Univers -clavulanat 5-23 05-31 tablet by it y of e 00:00: 04:59 mouth 2 [place] (AUGMENTIN) 00 :00 (two) Medical 875-125 mg times Branch per tablet daily for 7 days. docusate Yes [id number] 240mg Take 1 U nivers calcium 240 3-23 capsule by it y of mg capsule 00:00: mouth once [place] 00 daily as Medical needed for Branch Constipati on. ibuprofen Yes [id number] 600mg Take 1 Univers 600 mg 3-23 tablet by ity of tablet 00:00: mouth [place] 00 every 6 Medical (six) Branch hours as needed for Pain (scale 1-3) or Pain (scale 4-6) (Pain). Take with food or milk. Iron Fum & 2019-0 Yes [id number] 1{capsu Take 1 Univers P-FA-Vit B 3-23 le} capsule by ity of & C No.9 00:00: mouth [place] (INTEGRA 00 daily. Medical PLUS) 125 Branch mg iron- 1 mg Cap docusate Yes [id number] 240mg Take 1 U nivers calcium 240 3-23 capsule by it y of mg capsule 00:00: mouth once [place] 00 daily as Medical needed for Branch Constipati on. ibuprofen Yes [id number] 600mg Take 1 Univers 600 mg 3-23 tablet by ity of tablet 00:00: mouth [place] 00 every 6 Medical (six) Branch hours as needed for Pain (scale 1-3) or Pain (scale 4-6) (Pain). Take with food or milk. Iron Fum & Yes [id number] 1{capsu Take 1 Univers P-FA-Vit B 3-23 le} capsule by ity of & C No.9 00:00: mouth [place] (INTEGRA 00 daily. Medical PLUS) 125 Branch mg iron- 1 mg Cap docusate Yes [id number] 240mg Take 1 U nivers calcium 240 3-23 capsule by it y of mg capsule 00:00: mouth once [place] 00 daily as Medical needed for Branch Constipati on. ibuprofen Yes [id number] 600mg Take 1 Univers 600 mg 3-23 tablet by ity of tablet 00:00: mouth [place] 00 every 6 Medical (six) Branch hours as needed for Pain (scale 1-3) or Pain (scale 4-6) (Pain). Take with food or milk. Iron Fum & Yes [id number] 1{capsu Take 1 Univers P-FA-Vit B 3-23 le} capsule by ity of & C No.9 00:00: mouth [place] (INTEGRA 00 daily. Medical PLUS) 125 Branch mg iron- 1 mg Cap docusate Yes [id number] 240mg Take 1 U nivers calcium 240 3-23 capsule by it y of mg capsule 00:00: mouth once [place] 00 daily as Medical needed for Branch Constipati on. ibuprofen Yes [id number] 600mg Take 1 Univers 600 mg 3-23 tablet by ity of tablet 00:00: mouth [place] 00 every 6 Medical (six) Branch hours as needed for Pain (scale 1-3) or Pain (scale 4-6) (Pain). Take with food or milk. Iron Fum & Yes [id number] 1{capsu Take 1 Univers P-FA-Vit B 3-23 le} capsule by ity of & C No.9 00:00: mouth [place] (INTEGRA 00 daily. Medical PLUS) 125 Branch mg iron- 1 mg Cap docusate Yes [id number] 240mg Take 1 U nivers calcium 240 3-23 capsule by it y of mg capsule 00:00: mouth once [place] 00 daily as Medical needed for Branch Constipati on. ibuprofen Yes [id number] 600mg Take 1 Univers 600 mg 3-23 tablet by ity of tablet 00:00: mouth [place] 00 every 6 Medical (six) Branch hours as needed for Pain (scale 1-3) or Pain (scale 4-6) (Pain). Take with food or milk. Iron Fum & Yes [id number] 1{capsu Take 1 Univers P-FA-Vit B 3-23 le} capsule by ity of & C No.9 00:00: mouth [place] (INTEGRA 00 daily. Medical PLUS) 125 Branch mg iron- 1 mg Cap docusate Yes [id number] 240mg Take 1 U nivers calcium 240 3-23 capsule by it y of mg capsule 00:00: mouth once [place] 00 daily as Medical needed for Branch Constipati on. ibuprofen Yes [id number] 600mg Take 1 Univers 600 mg 3-23 tablet by ity of tablet 00:00: mouth [place] 00 every 6 Medical (six) Branch hours as needed for Pain (scale 1-3) or Pain (scale 4-6) (Pain). Take with food or milk. Iron Fum & Yes [id number] 1{capsu Take 1 Univers P-FA-Vit B 3-23 le} capsule by ity of & C No.9 00:00: mouth [place] (INTEGRA 00 daily. Medical PLUS) 125 Branch mg iron- 1 mg Cap Advair Advair No Advair [place] Diskus 250 Diskus 250 Diskus 250 da mcg-50 mcg-50 mcg-50 Medical mcg/dose mcg/dose mcg/dose Evelyn up powder for powder for powder for inhalation inhalation inhalation INHALE 1 INHALE 1 INHALE 1 PUFF BY PUFF BY PUFF BY INHALATION INHALATION INHALATION ROUTE 2 ROUTE 2 ROUTE 2 TIMES EVERY TIMES EVERY TIMES DAY DAY EVERY DAY NEEDED NEEDED NEEDED azelastine azelastine No azelastine [place] 137 mcg 137 mcg 137 mcg da (0.1 %) (0.1 %) (0.1 %) Medica l nasal spray nasal spray nasal Group aerosol USE aerosol USE spray 2 SPRAYS BY 2 SPRAYS BY aerosol INTRANASAL INTRANASAL USE 2 ROUTE 2 ROUTE 2 SPRAYS BY TIMES EVERY TIMES EVERY INTRANASAL DAY IN EACH DAY IN EACH ROUTE 2 NOSTRIL. NOSTRIL. TIMES EVERY DAY IN EACH NOSTRIL. cephalexin cephalexin No cephalexin [place] 250 mg 250 mg 250 mg da capsule capsule capsule Medica l TAKE 1 TAKE 1 TAKE 1 Group CAPSULE BY CAPSULE BY CAPSULE BY MOUTH EVERY MOUTH EVERY MOUTH 6 (SIX) 6 (SIX) EVERY 6 HOURS FOR 5 HOURS FOR 5 (SIX) DAYS. DAYS. HOURS FOR 5 DAYS. fluconazole fluconazole No 1 fluconazol [place] 150 mg 150 mg e 150 mg da tablet Take tablet Take tablet Medical 1 tablet 1 tablet Take 1 Group every 72 every 72 tablet hours by hours by every 72 oral route. oral route. hours by oral route. nitrofurant nitrofurant No nitrofuran [place] oin oin toin da monohydrate monohydrate monohydrat Medical /macrocryst /macrocryst e/macrocry Group als 100 mg als 100 mg stals 100 capsule capsule mg capsule TAKE 1 TAKE 1 TAKE 1 CAPSULE BY CAPSULE BY CAPSULE BY MOUTH IN MOUTH IN MOUTH IN THE MORNING THE MORNING THE AND 1 AND 1 MORNING CAPSULE IN CAPSULE IN AND 1 THE THE CAPSULE IN EVENING. DO EVENING. DO THE ALL THIS ALL THIS EVENING. FOR 5 DAYS. FOR 5 DAYS. DO ALL THIS FOR 5 DAYS. nystatin nystatin No nystatin [place] 100,000 100,000 100,000 da unit/gram unit/gram unit/gram Medical topical topical topical Group cream APPLY cream APPLY cream TO THE TO THE APPLY TO AFFECTED AFFECTED THE AREA(S) BY AREA(S) BY AFFECTED TOPICAL TOPICAL AREA(S) BY ROUTE 2 ROUTE 2 TOPICAL TIMES PER TIMES PER ROUTE 2 DAY DAY TIMES PER DAY phenazopyri phenazopyri No phenazopyr [place] dine 100 mg dine 100 mg idine 100 da tablet tablet mg tablet Medica l PLEASE SEE PLEASE SEE PLEASE SEE Group ATTACHED ATTACHED ATTACHED FOR FOR FOR DETAILED DETAILED DETAILED DIRECTIONS DIRECTIONS DIRECTIONS Advair Advair No Advair [place] Diskus 250 Diskus 250 Diskus 250 da mcg-50 mcg-50 mcg-50 Medical mcg/dose mcg/dose mcg/dose Evelyn up powder for powder for powder for inhalation inhalation inhalation INHALE 1 INHALE 1 INHALE 1 PUFF BY PUFF BY PUFF BY INHALATION INHALATION INHALATION ROUTE 2 ROUTE 2 ROUTE 2 TIMES EVERY TIMES EVERY TIMES DAY DAY EVERY DAY NEEDED NEEDED NEEDED azelastine azelastine No azelastine [place] 137 mcg 137 mcg 137 mcg da (0.1 %) (0.1 %) (0.1 %) Medica l nasal spray nasal spray nasal Group aerosol USE aerosol USE spray 2 SPRAYS BY 2 SPRAYS BY aerosol INTRANASAL INTRANASAL USE 2 ROUTE 2 ROUTE 2 SPRAYS BY TIMES EVERY TIMES EVERY INTRANASAL DAY IN EACH DAY IN EACH ROUTE 2 NOSTRIL. NOSTRIL. TIMES EVERY DAY IN EACH NOSTRIL. Diflucan Diflucan No 1 Q1D Diflucan [place] 100 mg 100 mg 100 mg da tablet Take tablet Take tablet Medical 1 tablet 1 tablet Take 1 Group every day every day tablet by oral by oral every day route for 3 route for 3 by oral days. days. route for 3 days. fluconazole fluconazole No fluconazol [place] 150 mg 150 mg e 150 mg da tablet TAKE tablet TAKE tablet Medical 1 TABLET BY 1 TABLET BY TAKE 1 Group MOUTH EVERY MOUTH EVERY TABLET BY 72 HOURS 72 HOURS MOUTH EVERY 72 HOURS nitrofurant nitrofurant No nitrofuran [place] oin oin toin da monohydrate monohydrate monohydrat Medical /macrocryst /macrocryst e/macrocry Group als 100 mg als 100 mg stals 100 capsule capsule mg capsule TAKE 1 TAKE 1 TAKE 1 CAPSULE BY CAPSULE BY CAPSULE BY MOUTH IN MOUTH IN MOUTH IN THE MORNING THE MORNING THE AND 1 AND 1 MORNING CAPSULE IN CAPSULE IN AND 1 THE THE CAPSULE IN EVENING. DO EVENING. DO THE ALL THIS ALL THIS EVENING. FOR 5 DAYS. FOR 5 DAYS. DO ALL THIS FOR 5 DAYS. nystatin nystatin No nystatin [place] 100,000 100,000 100,000 da unit/gram unit/gram unit/gram Medical topical topical topical Group cream APPLY cream APPLY cream TO THE TO THE APPLY TO AFFECTED AFFECTED THE AREA(S) BY AREA(S) BY AFFECTED TOPICAL TOPICAL AREA(S) BY ROUTE 3 ROUTE 3 TOPICAL TIMES PER TIMES PER ROUTE 3 DAY DAY TIMES PER DAY phenazopyri phenazopyri No phenazopyr [place] dine 100 mg dine 100 mg idine 100 da tablet tablet mg tablet Medica l PLEASE SEE PLEASE SEE PLEASE SEE Group ATTACHED ATTACHED ATTACHED FOR FOR FOR DETAILED DETAILED DETAILED DIRECTIONS DIRECTIONS DIRECTIONS ferrous ferrous No ferrous [place] sulfate 325 sulfate 325 sulfate da mg (65 mg mg (65 mg 325 mg (65 Medical iron) iron) mg iron) Group tablet TAKE tablet TAKE tablet 1 TABLET BY 1 TABLET BY TAKE 1 MOUTH EVERY MOUTH EVERY TABLET BY DAY DAY MOUTH EVERY DAY folic acid folic acid No folic acid [place] 1 mg tablet 1 mg tablet 1 mg d a Take 1 Take 1 tablet Medical tablet tablet Take 1 Group every day every day tablet by oral by oral every day route. route. by oral route. ibuprofen ibuprofen No ibuprofen [place] 800 mg 800 mg 800 mg da tablet tablet tablet Medical Group ondansetron ondansetron No ondansetro [place] 8 mg 8 mg n 8 mg da disintegrat disintegrat disintegra Medical ing tablet ing tablet ting Evelyn up Place 1 Place [address] 1 every 8 every 8 tablet hours by hours by every 8 translingua translingua hours by l route. l route. translingu al route. Vitafol Vitafol No Vitafol [place] Ultra 29 mg Ultra 29 mg Ultra 29 da iron-1 iron-1 mg iron-1 Medica l mg-200 mg mg-200 mg mg-200 mg Group capsule capsule capsule TAKE TAKE TAKE DIRECTED DIRECTED DIRECTED Immunizations Ordered Filled Immunization Date Status Comments [facility] e Immunization Name Name Tdap Tdap 2020-02-04 Completed [facility] 09:[facility]:03 Group Tdap Tdap 2020-02-04 Completed [facility] 09:35:03 Group Tdap Tdap 2020-02-04 Completed [facility] 09:35:03 Group TDAP 2018-02-22 Completed University of 00:00:00 [facility] TDAP 2018-02-22 Completed University 00:00:00 [facility] Tdap 2018-02-22 Completed University 00:00:00 [facility] Tdap 2018-02-22 Completed University of 00:00:00 [facility] TDAP 2018-02-22 Completed University of 00:00:00 [facility] TDAP 2018-02-22 [facility]00 [facility] Vital Signs Vital Name Observation Time Observation Value Comments Source BP Diastolic 2021-12-06 00:00:00 79 mm[Hg] [facility] Height 2021-12-06 00:00:00 66 [in_i] [facility] BMI (Body Mass 2021-12-06 00:00:00 18.6 kg/m2 [facility] Medical Index) Group BP Systolic 2021-12-06 00:00:00 125 mm[Hg] [facility] Body Weight 2021-12-06 00:00:00 115 [lb_av] [facility] BP Diastolic 2021-11-18 00:00:00 79 mm[Hg] [facility] Height 2021-11-18 00:00:00 66 [in_i] [facility] BMI (Body Mass 2021-11-18 00:00:00 18.7 kg/m2 [facility] Medical Index) Group BP Systolic 2021-11-18 00:00:00 118 mm[Hg] [facility] Body Weight 2021-11-18 00:00:00 116.1 [lb_av] [facility] Systolic blood 2021-11-05 14:13:00 121 mm[Hg] Univer sity of pressure [facility] Diastolic blood 2021-11-05 14:13:00 78 mm[Hg] Unive rsity of [facility] Heart rate 2021-11-05 14:13:00 101 /min [facility] Body temperature 2021-11-05 14:13:00 36.44 Elisabeth Univ ersity [facility] Respiratory rate 2021-11-05 14:13:00 16 /min [facility] 2021-11-05 14:13:00 167.6 cm [facility] Body weight 2021-11-05 14:13:00 51.71 kg [facility] BMI 2021-11-05 14:13:00 18.40 kg/m2 [facility] Oxygen saturation in 2021-11-05 14:13:00 100 /min University of Arterial blood by [facility] Pulse oximetry Branch Systolic blood 2021-07-11 17:50:00 120 mm[Hg] Univer sity of pressure [facility] Diastolic blood 2021-07-11 17:50:00 73 mm[Hg] Unive rsity of pressure [facility] Heart rate 2021-07-11 17:50:00 79 /min Universi [facility] Body temperature 2021-07-11 17:50:00 36.33 Elisabeth [facility] 2021-07-11 17:50:00 18 /min [facility] height 2021-07-11 17:50:00 167.6 cm Universi [facility] Body weight 2021-07-11 17:50:00 [facility]099 [facility] BMI 2021-07-11 17:50:00 18.89 kg/m2 [facility] Oxygen saturation in 2021-07-11 17:50:00 100 /min [facility] Arterial blood by [facility] Pulse oximetry Branch BP Diastolic 2020-04-26 00:00:00 79 mm[Hg] [facility] Height 2020-04-26 00:00:00 66 [in_i] [facility] BMI (Body Mass 2020-04-26 00:00:00 23.8 kg/m2 [facility] Medical Index) Group BP Systolic 2020-04-26 00:00:00 124 mm[Hg] [facility] Body Weight 2020-04-26 00:00:00 147.3 [lb_av] [facility] BP Diastolic 2020-04-20 00:00:00 84 mm[Hg] [facility] Height 2020-04-20 00:00:00 66 [in_i] [facility] BMI (Body Mass 2020-04-20 00:00:00 24.3 kg/m2 [facility] Medical Index) Group BP Systolic 2020-04-20 00:00:00 137 mm[Hg] [facility] Body Weight 2020-04-20 00:00:00 150.4 [lb_av] [facility] BP Diastolic 2020-04-13 00:00:00 77 mm[Hg] [facility] Height 2020-04-13 00:00:00 66 [in_i] [facility] BMI (Body Mass 2020-04-13 00:00:00 23.7 kg/m2 [facility] Medical Index) Group BP Systolic 2020-04-13 00:00:00 130 mm[Hg] [facility] Body Weight 2020-04-13 00:00:00 147 [lb_av] [facility] BP Diastolic 2020-04-02 00:00:00 78 mm[Hg] [facility] Height 2020-04-02 00:00:00 66 [in_i] [facility] BMI (Body Mass 2020-04-02 00:00:00 24 kg/m2 [facility] Medical Index) Group BP Systolic 2020-04-02 00:00:00 129 mm[Hg] [facility] Body Weight 2020-04-02 00:00:00 148.4 [lb_av] [facility] BP Diastolic 2020-03-17 00:00:00 73 mm[Hg] [facility] Height 2020-03-17 00:00:00 66 [in_i] [facility] BMI (Body Mass 2020-03-17 00:00:00 23.3 kg/m2 [facility] Medical Index) Group BP Systolic 2020-03-17 00:00:00 116 mm[Hg] [facility] Body Weight 2020-03-17 00:00:00 144.1 [lb_av] [facility] BP Diastolic 2020-03-03 00:00:00 80 mm[Hg] [facility] Height 2020-03-03 00:00:00 66 [in_i] [facility] BMI (Body Mass 2020-03-03 00:00:00 23.4 kg/m2 [facility] Medical Index) Group BP Systolic 2020-03-03 00:00:00 123 mm[Hg] [facility] Body Weight 2020-03-03 00:00:00 145.1 [lb_av] [facility] BP Diastolic 2020-02-04 00:00:00 72 mm[Hg] [facility] Height 2020-02-04 00:00:00 66 [in_i] [facility] BMI (Body Mass 2020-02-04 00:00:00 23.1 kg/m2 [facility] Medical Index) Group BP Systolic 2020-02-04 00:00:00 112 mm[Hg] [facility] Body Weight 2020-02-04 00:00:00 143.1 [lb_av] [facility] BP Diastolic 2020-01-14 00:00:00 74 mm[Hg] [facility] Height 2020-01-14 00:00:00 66 [in_i] [facility] BMI (Body Mass 2020-01-14 00:00:00 22.6 kg/m2 [facility] Medical Index) Group BP Systolic 2020-01-14 00:00:00 112 mm[Hg] [facility] Body Weight 2020-01-14 00:00:00 140 [lb_av] [facility] BP Diastolic 2019-12-16 00:00:00 63 mm[Hg] [facility] Height 2019-12-16 00:00:00 66 [in_i] [facility] BMI (Body Mass 2019-12-16 00:00:00 22 kg/m2 [facility] Group BP Systolic 2019-12-16 00:00:00 123 mm[Hg] [facility] Body Weight 2019-12-16 00:00:00 136 [lb_av] [facility] Group BP Diastolic 2019-11-18 00:00:00 82 mm[Hg] [facility] Height 2019-11-18 00:00:00 66 [in_i] [facility] BMI (Body Mass 2019-11-18 00:00:00 21.4 kg/m2 [facility] Medical Index) Group BP Systolic 2019-11-18 00:00:00 138 mm[Hg] [facility] Body Weight 2019-11-18 00:00:00 132.8 [lb_av] [facility] BP Diastolic 2019-11-12 00:00:00 80 mm[Hg] [facility] Height 2019-11-12 00:00:00 66 [in_i] [facility] BMI (Body Mass 2019-11-12 00:00:00 21.3 kg/m2 [facility] Medical Index) Group BP Systolic 2019-11-12 00:00:00 134 mm[Hg] [facility] Body Weight 2019-11-12 00:00:00 131.9 [lb_av] [facility] BP Diastolic 2019-10-24 00:00:00 71 mm[Hg] [facility] Height 2019-10-24 00:00:00 66 [in_i] [facility] BMI (Body Mass 2019-10-24 00:00:00 20.9 kg/m2 [facility] Medical Index) Group BP Systolic 2019-10-24 00:00:00 136 mm[Hg] [facility] Body Weight 2019-10-24 00:00:00 129.6 [lb_av] [facility] BP Diastolic 2019-10-20 00:00:00 78 mm[Hg] [facility] Height 2019-10-20 00:00:00 66 [in_i] [facility] BMI (Body Mass 2019-10-20 00:00:00 20.9 kg/m2 [facility] Medical Index) Group BP Systolic 2019-10-20 00:00:00 112 mm[Hg] [facility] Body Weight 2019-10-20 00:00:00 129.4 [lb_av] [facility] BP Diastolic 2019-10-03 00:00:00 83 mm[Hg] [facility] Height 2019-10-03 00:00:00 66 [in_i] [facility] BMI (Body Mass 2019-10-03 00:00:00 20.8 kg/m2 [facility] Medical Index) Group BP Systolic 2019-10-03 00:00:00 128 mm[Hg] [facility] Body Weight 2019-10-03 00:00:00 128.8 [lb_av] [facility] BP Diastolic 2019-02-06 00:00:00 85 mm[Hg] [facility] Height 2019-02-06 00:00:00 66 [in_i] [facility] BMI (Body Mass 2019-02-06 00:00:00 21 kg/m2 [facility] Medical Index) Group BP Systolic 2019-02-06 00:00:00 119 mm[Hg] [facility] Body Weight 2019-02-06 00:00:00 129.9 [lb_av] [facility] BP Diastolic 2019-01-06 00:00:00 77 mm[Hg] [facility] Height 2019-01-06 00:00:00 66 [in_i] [facility] BMI (Body Mass 2019-01-06 00:00:00 20.9 kg/m2 [facility] Medical Index) Group BP Systolic 2019-01-06 00:00:00 117 mm[Hg] [facility] Body Weight 2019-01-06 00:00:00 129.6 [lb_av] [facility] BP Diastolic 2018-12-04 00:00:00 77 mm[Hg] [facility] Height 2018-12-04 00:00:00 66 [in_i] [facility] BMI (Body Mass 2018-12-04 00:00:00 21.1 kg/m2 [facility] Medical Index) Group BP Systolic 2018-12-04 00:00:00 141 mm[Hg] [facility] Body Weight 2018-12-04 00:00:00 130.5 [lb_av] [facility] Systolic blood 2018-10-09 19:36:00 121 mm[Hg] Univer sity of pressure [facility] Diastolic blood 2018-10-09 19:36:00 71 mm[Hg] [facility] Heart rate 2018-10-09 19:36:00 83 /min [facility] Body temperature 2018-10-09 19:36:00 37.11 [facility] Respiratory rate 2018-10-09 19:36:00 16 /min [facility] Body height 2018-10-09 19:36:00 167.6 cm [facility] Body weight 2018-10-09 19:36:00 59.024 kg [facility] BMI 2018-10-09 19:36:00 21.00 kg/m2 [facility] BMI 2021-11-10 14:48:00 18.40 kg/m2 [facility] Body height 2021-11-10 14:48:00 167.6 cm [facility] Body weight 2021-11-10 14:48:00 51.71 kg [facility] Procedures Procedure Date / Time Performing Clinician Source Performed MRI CERVICAL SPINE W WO 2021-11-10 16:03:[address] [facility] CONTRAST MRI BRAIN W WO CONTRAST 2021-11-10 15:30:00 [facility] MRA HEAD WO CONTRAST 2021-11-09 17:45:00 [facility] MRA NECK WO CONTRAST 2021-11-09 17:20:00 [facility] POCT URINALYSIS 2021-11-05 14:17:00 [facility] ASSIGNMENT OF BENEFITS 2021-07-11 17:46:46 Doctor Unassigned, [facility] [place] [facility] US, obstetric, limited 2020-04-02 00:00:00 [facility] ord Medical [facility] US, obstetric, limited 2020-03-03 00:00:00 [facility] ULTRASOUND REPEAT 2020-02-04 00:00:00 [facility] ULTRASOUND, 2019-11-18 00:00:00 [facility] UTERUS REAL TIME WITH Group IMAGE DOC, AND MATERNAL EVAL PLUS DETAILED ANATOMIC EXAMINATION, TRANSABDOMINAL APPROACH; SINGLE OR FIRST GESTATION US, obstetric, limited 2019-11-18 00:00:00 [facility] US, obstetric, limited 2019-10-20 00:00:00 [facility] ord Medical [facility] US, obstetric, 1st 2019-10-02 00:00:00 [facility] trimester, single Group gestation TYMPANOMETRY 2019-01-06 00:00:00 [facility] dical [facility] CT, sinuses, w/o contrast 2019-01-06 00:00:00 [facility] TYMPANOMETRY 2018-12-04 00:00:00 [facility] POCT TEST 2018-10-09 19:37:00 Teresa Velez [facility] ASSIGNMENT OF BENEFITS 2018-10-09 19:10:58 [facility] [place] [facility] Plan of Care Planned Activity Planned Date Details Comments Source Future Scheduled Test 2022-02-06 COVID-19 VACCINE [facility] 21:57:17 (#1) [code = COVID-19 VACCINE (#1)] Future Scheduled Test 2022-02-06 [facility] 21:57:17 screening (procedure) [code = 469635977] Future Scheduled Test 2022-02-06 Screening for [facility] 21:57:17 malignant neoplasm of cervix (procedure) [code = 018296042] Future Scheduled Test 2022-02-[address] [facility] 21:57:17 [code = INFLUENZA VACCINE] Diagnostic Test 2021-12-06 wet mount, vaginal [facility] Pending 00:00:00 [code = wet mount, Group vaginal] Diagnostic Test 2021-12-06 CT + NG + TV, DNA, [facility] Pending 00:00:00 urine/swab [code = Group CT + NG + TV, DNA, urine/swab] Instructions [facility] Encounters Start End Encounter Admission Attending Care Care Encounter Source Date/Time Date/Time Type Type Clinicians Facility Department ID 2022-02-27 2022-02-27 Outpatient G_Pappas [facility]G [facility] [id number] [facility] 00:00:00 00:00:00 0109 [facility] 2022-01-23 2022-01-23 Outpatient G_Pappas MMG [facility] [id number] [facility] 00:00:00 00:00:00 1205 [facility] 2022-01-23 2022-01-23 Travel 1.2.840.1 [id number] Methodi 00:00:00 00:00:[address] 3.430.2.7 0.2.7.3.698 Ho spita .3.071404 084.8 l .8 2021-12-20 2021-12-20 Outpatient G_Pappas [facility] [id number] [facility] 00:00:00 00:00:00 1101 [facility] 2021-12-06 2021-12-06 Outpatient G_Pappas MMG MM [id number] [facility] 00:00:00 00:00:00 1018 [facility] 2021-12-06 2021-12-06 Stalin [facility] [place] - [id number] M atagor 00:00:00 00:00:00 Discovery darian Guy MD: [address] [address] , Ph. [phone] 2021-11-18 2021-11-18 [facility] [id number] [facility] 00:00:00 00:00:00 0930 [facility] 2021-11-18 2021-11-18 Alma [facility] [place] - [id number] M atagor 00:00:00 00:00:00 Discovery darian Borges [facility]-: [address] [address] , Ph. [phone] 2021-11-17 2021-11-17 [facility] [id number] [facility] 00:00:00 00:00:00 0929 [facility] 2021-11-10 2021-11-10 Outpatient CHRISTIANSON, [facility] [id number] [place] 00:00:00 00:00:00 JACOB 222 Method i 2021-11-10 2021-11-10 Outpatient CHRISTIANSON, [facility] [id number] [address] [place] [address] 00:00:00 00:00:00 JACOB 221 Method i 2021-11-09 2021-11-09 Outpatient CHRISTIANSON, [facility] [id number] [place] 00:00:00 00:00:00 JACOB 429 Method i 2021-11-09 2021-11-09 Outpatient CHRISTIANSON, [facility] [id number] [place] 00:00:00 00:00:00 JAC[address] 2021-11-08 2021-11-08 Telephone Fran [facility] 1.2.443.681 [id number] Univers 00:00:00 00:00:00 [facility] 350.1.13.10 it y of [place] 4.2.7.2.686 [place] RON?BLEA [id number] [address] MEDICAL OFFICE [facility] 2021-11-07 2021-11-07 Travel 1.2.840.1 1.2.021.493 [id number] Methodi 00:00:00 00:00:[address] 3.430.2.7 0.2.7.3.698 Ho spita .3.978659 084.8 l .8 2021-11-05 2021-11-05 Kali Peters [facility] 1.2.840.114 [id number] Univers 09:40:00 09:40:00 Care Sera, [facility] 350.1.13.10 ity [facility] 4.2.7.2.686 [place] RON?BLEA [id number] [address] MEDICAL OFFICE [facility] 2021-11-05 2021-11-05 Outpatient R SERA [facility] [id number] Univers 09:40:00 09:30:32 [facility] 2021-10-28 2021-10-28 Transcribe Amadeo, 1.2.840.1 [id number] Methodi 00:00:00 00:00:00 Orders Jacob Rowan 14277.1.[address] 3.430.2.7 Hospit a .3.942653 l .8 2021-07-11 2021-07-11 Outpatient R FRAN [facility] [id number] Univers 13:00:00 13:07:26 KATERINA [facility] 2021-07-11 2021-07-11 Urgent Fran [facility] 1.2.840.114 [id number] Univers 13:00:00 13:07:26 Care [facility]ly [facility], Attending HEALTH 350..13.10 ity of [place] 4.2.7.2.686 [place] RON?BLEA [id number] Al dical [address] MEDICAL OFFICE BUILDING 2021-07-11 2021-07-11 Orders Doctor KUTR 1.2.840.114 [id number] Univers 00:00:00 00:00:00 Only Unassigned, RHONA 350.1.13.10 ity of [place] [facility] 4.2.7.2.686 [place] as [id number] [address] 2020-04-29 2020-04-29 Outpatient Rutledge_L MMG MMG [id number] [place] 12:44:00 12:44:00 0311 Medical Group 2020-04-26 2020-04-26 Outpatient Rutledge_L MMG MMG [id number] [place] 12:17:00 12:17:00 0308 Medical Group 2020-04-26 2020-04-26 Outpatient Rutledge_L MMG MMG [id number] [place] 12:17:00 12:17:00 0310 [facility] 2020-04-26 2020-04-26 Cam [facility] [place] - [id number] M atagor 00:00:00 00:00:00 Corina Jerome Medicotf jain MD: [address] [place] [address] , Ph. [phone] 2020-04-20 2020-04-20 Outpatient Rutledge_L MMG MMG [id number] [place] 02:33:00 02:33:00 0302 [facility] 2020-04-20 2020-04-20 Outpatient Rutledge_L MMG MMG [id number] [place] 02:33:00 02:33:00 0303 [facility] 2020-04-20 2020-04-20 Cam MM [place] - [id number] M atagor 00:00:00 00:00:00 Corina Jerome Medicotf jain MD: [address] [address] , Ph. [phone] 2020-04-13 2020-04-13 Outpatient Rutledge_L MMG MMG [id number] [place] 02:49:00 02:49:00 0223 [facility] 2020-04-13 2020-04-13 Outpatient Rutledge_L MMG MMG [id number] [place] 02:49:00 02:49:00 0225 [facility] 2020-04-13 2020-04-13 Cam MM [place] - [id number] M atagor 00:00:00 00:00:00 Mat[facility] cristobal MD: [address] [address] , Ph. [phone] 2020-04-02 2020-04-02 Outpatient Rutledge_L MMG MMG [id number] [place] 12:17:00 12:17:00 0212 [facility] 2020-04-02 2020-04-02 Outpatient Rutledge_L MMG MMG [id number] [place] 12:17:00 12:17:00 0221 [facility] 2020-04-02 2020-04-02 Cam MM [place] - [id number] M atagor 00:00:00 00:00:00 [facility] cristobal MD: [address] [address] , Ph. [phone] 2020-03-17 2020-03-17 Outpatient Rutledge_L MMG MMG [id number] [place] 03:50:00 03:50:00 0127 [facility] 2020-03-17 2020-03-17 Cam MM [place] - [id number] M atagor 00:00:00 00:00:00 [facility] cristobal MD: [address] [address] , Ph. [phone] 2020-03-03 2020-03-03 Outpatient Rutledge_L MMG MMG [id number] [place] 04:41:00 04:41:00 0113 [facility] 2020-03-03 2020-03-03 Outpatient Rutledge_L MMG MMG [id number] [place] 04:41:00 04:41:00 0114 [facility] 2020-03-03 2020-03-03 Cam MMG [place] - [id number] M atagor 00:00:00 00:00:00 [facility] cristobal MD: [address] [address] , Ph. [phone] 2020-02-19 2020-02-19 Outpatient Rutledge_L MMG MMG [id number] [place] 01:04:00 01:04:00 1231 [facility] 2020-02-04 2020-02-04 Outpatient Rutledge_L MMG MMG [id number] [place] 09:02:00 09:02:00 1216 [facility] 2020-02-04 2020-02-04 Outpatient Rutledge_L MMG MMG [id number] [place] 09:02:00 09:02:00 1217 [facility] 2020-02-04 2020-02-04 Cam MMG [place] - [id number] atagor 00:00:00 00:00:00 [facility] cristobal MD: [address] [address] , Ph. [phone] 2020-01-14 2020-01-14 Outpatient Rutledge_L MMG MMG [id number] [place] 12:35:00 12:35:00 1125 [facility] 2020-01-14 2020-01-14 Cam MMG [place] - [id number] atagor 00:00:00 00:00:00 [facility] cristobal MD: [address] [address] , Ph. [phone] 2020-01-07 2020-01-07 Outpatient Rutledge_L MMG MMG [id number] [place] 02:46:00 02:46:00 1118 [facility] 2019-12-16 2019-12-16 Outpatient Rutledge_L MMG MMG [id number] [place] 05:46:00 05:46:00 1027 [facility] 2019-12-16 2019-12-16 Outpatient Rutledge_L MMG MMG [id number] [place] 05:46:00 05:46:00 1029 [facility] 2019-12-16 2019-12-16 Cam MM [place] - [id number] M atagor 00:00:00 00:00:00 [facility] cristobal MD: [address] [place] [address] , Ph. [phone] 2019-11-18 2019-11-18 Outpatient Raju_P MMG MMG [id number] [place] 12:36:00 12:36:00 0929 [facility] 2019-11-18 2019-11-18 Outpatient Raju_P MMG MMG [id number] [place] 12:36:00 12:36:00 0930 [facility] 2019-11-18 2019-11-18 Cam MM [place] - [id number] M atagor 00:00:00 00:00:00 [facility] Medicot[facility] jain MD: [address] [place] [address] , Ph. [phone] 2019-11-12 2019-11-12 Outpatient Raju_P MMG MMG [id number] [place] 02:57:00 02:57:00 0923 [facility] 2019-11-12 2019-11-12 Nusrat Garcia MM [place] - [id number] [place] 00:00:00 00:00:00 Discovery Jonathan Espinal: [address] Medical [address] [address] , Ph. [phone] 2019-10-26 2019-10-26 [place] [id number] [place] 11:04:00 11:04:00 0906 Medical Group 2019-10-24 2019-10-24 [place] [id number] [place] 10:17:00 10:17:00 0904 Medical Group 2019-10-24 2019-10-24 Nusrat Garcia MM [place] - [id number] [place] 00:00:00 00:00:00 Discovery darian Espinal NP: [address] [place] [address] , Ph. [phone] 2019-10-20 2019-10-20 [place] [id number] [place] 08:05:00 08:05:00 0831 [facility] 2019-10-20 2019-10-20 Stalin [facility] [place] - [id number] M atagor 00:00:00 00:00:00 Discovery darian Guy MD: [address] [place] [address] , Ph. [phone] 2019-10-04 2019-10-04 [place] [id number] [place] 06:11:00 06:11:00 0815 [facility] Group 2019-10-03 2019-10-03 [place] [id number] [place] 10:13:00 10:13:00 0814 Medical Group 2019-10-03 2019-10-03 Nusrat Garcia MM [place] - [id number] [place] 00:00:00 00:00:00 Discovery darian Espinal NP: [address] [place] [address] , Ph. [phone] 2019-09-30 2019-09-30 [place] [id number] [place] 11:58:00 11:58:00 0811 Medical Group 2019-09-30 2019-09-30 [place] [id number] [place] 11:58:00 11:58:00 0813 [facility] 2019-02-18 2019-02-18 Outpatient Raju_P MMG MMG [id number] [place] 01:48:00 01:48:00 0810 [facility] 2019-02-06 2019-02-06 Palivela MMG [place] - [id number] [place] 00:00:00 00:00:00 MD Sean: [place] [address], [facility] [address] , Ph. 2019-01-06 2019-01-06 Palivela MM [place] - [id number] [place] 00:00:00 00:00:00 MD Sean: [place] [address], [facility] [address] , Ph. 2018-12-04 2018-12-04 Palivela MM [place] - [id number] [facility] 00:00:00 00:00:00 MD Sean: [address], [facility] [address] , Ph. 2018-10-09 2018-10-09 Nurse Visit, [facility] Nurse [facility] 1.2 .840.114 [id number] [facility] 14:28:23 15:15:52 Visit Teresa Velez STERNMAN 350.1.13. 10 ity of [facility] 4.2.7.2.686 [place] as MATERNAL [id number] [facility] ical & CHILD [address] [place] [address] 2018-10-09 2018-10-09 Orders Doctor KURT 1.2.840.114 [id number] Univers 00:00:00 00:00:00 Only Unassigned, RHONA 350.1.13.10 ity of [place] [facility] 42.7.2.686 [place] [id number] [place] [address] Branch Results Test Description Test Time Test Comments Results Result Comments Source Microscopic observation [Identifier] in Vaginal fluid by Wet 2021-12-06 13:22:46 preparation Test Item Value Reference Range Interpretation Comme nts Clue Cells (test code = Clue Cells) negative WBCs (test code = WBCs) positive Trichomonads (test code = Trichomonads) negative Epithelial cells (test code = Epithelial cells) normal RBCs (test code = RBCs) negative [facility], DNA, urine/[id number] 00:00:00 Test Item Value Reference Range Interpretation Comments kasie - swab (test code = kasie normal - swab) gardnerella (test code = abnormal A gardnerella) CT/NG (test code = CT/NG) normal trichomonas vaginalis addon - swab abnormal A (test code = trichomonas vaginalis addon - swab) [facility] macro (dipstick) panel - [id number] 11:10:13 Test Item Value Reference Range Interpretation Comments Leukocytes (test code = Leukocytes) Negative Nitrite (test code = Nitrite) negative Urobilinogen (test code = .2 Urobilinogen) Protein (test code = Protein) Negative pH (test code = pH) 5.5 Blood (test code = Blood) Negative Specific Wheaton (test code = 1.030 Specific [place]) Ketone (test code = Ketone) Negative Bilirubin (test code = Bilirubin) Negative Glucose (test code = Glucose) Negative Appearance (test code = Appearance) Clear Color (test code = Color) Yellow [facility] macro (dipstick) panel - [id number] 11:10:13 Test Item Value Reference Range Interpretation Comments Leukocytes (test code = Leukocytes) Negative Nitrite (test code = Nitrite) negative Urobilinogen (test code = .2 Urobilinogen) Protein (test code = Protein) Negative pH (test code = pH) 5.5 Blood (test code = Blood) Negative Specific [place] (test code = 1.030 Specific [place]) Ketone (test code = Ketone) Negative Bilirubin (test code = Bilirubin) Negative Glucose (test code = Glucose) Negative Appearance (test code = Appearance) Clear Color (test code = Color) Yellow [facility] W SPECIFIC [id number] 14:18:00 Test Item Value Reference Range Interpretation Comments POCT U SP GRAV (test code = 1.015 mg/dl 1.005-1.025 3255) POCT PH U (test code = 3254) 5 mg/dl 5-8 POCT U LEUK EST (test code = ++ Negative - Negative 3263) POCT U NIT (test code = 3262) neg Negative - Negative POCT U PROT (test code = trace Negative - Negative 3259) POCT U GLU (test code = 3256) norm Negative - Negative POCT U KETONE (test code = neg Negative - Negative 3258) POCT U UROBILI (test code = norm 0.2-1 3260) POCT U BILI (test code = neg Negative - Negative 3261) POCT U BLD (test code = 3257) trace Negative - Negative POCT U COLOR (test code = yellow 3266) POCT U APPEAR (test code = cloudy 3267) Lab Interpretation (test code Abnormal = 35394-2) [facility] - Blood 2020-04-28 07:19:00 Test Item Value Reference Range Interpretation Comments Blood type and Crossmatch unit number: panel - Blood (test code [id number] = 32577-6) [place] [id number] 07:19[facility] 2020-04-28 07:19:00[place] [id number] 07:19:00Results [place] [id number] 07:19:00[facility] 2020-04-28 07:19:00[place] [id number] 07:19:00Results [place] [id number] 07:19:00[facility] 2020-04-28 07:19:00Results[place] [id number] 07:19:00Results [place] [id number] 07:19:00[facility] 2020-04-28 07:19:00Results[place] [id number] 07:19:00Results [place] [id number] 07:19:00Results[facility] 2020-04-28 07:19:00ResSelect [facility] HospitalHemoglobin and Hematocrit panel - [id number] 05:57:00 Test Item Value Reference Range Interpretation Comments hemoglobin (test code = hemoglobin) 10.0 g/dL 10.5-15.7 hematocrit (test code = hematocrit) 33.7 % 34.0-50.0 [facility] W Auto Differential panel - [id number] 03:48:00 Test Item Value Reference Range Interpretation Comments white blood count (test code = 13.3 K/uL 4.0-11.5 H white blood count) red blood count (test code = red 3.39 M/uL 3.80-5.20 L blood count) hemoglobin (test code = 6.9 g/dL 10.5-15.7 L hemoglobin) hematocrit (test code = 25.1 % 34.0-50.0 L hematocrit) MCV [Entitic volume] (test code = 74.0 fL 86-100 L 79013-2) mean corpuscular hemoglobin (test 20.4 pg 26.2-33.4 L code = mean corpuscular hemoglobin) mean corpuscular HGB conc (test 27.5 g/dL 30-34 L code = mean corpuscular HGB conc) red cell distribution width (test 18.1 % 12.0-15.5 H code = red cell distribution width) platelet count (test code = 186 K/uL 165-450 platelet count) mean platelet volume (test code = 9.9 fL 9.4-12.6 mean platelet volume) Segmented neutrophils/100 72.0 % 44.4-80.1 leukocytes in Blood (test code = 58559-8) Immature granulocytes [#/volume] 0.1 K/uL 0.0-0.03 H in Blood (test code = 12042-7) lymphocyte% (test code = 16.7 % 10.0-50.0 lymphocyte%) mono % (test code = mono %) 9.7 % 3.6-12.0 eos % (test code = eos %) 0.7 % 0.0-5.4 Basophils/100 leukocytes in 0.2 % 0.1-1.2 Unspecified specimen (test code = 04618-5) Band form neutrophils [#/volume] 9.57 K/uL 1.56-6.13 H in Blood (test code = 14732-5) Lymphocytes [#/volume] in 2.2 K/uL 1.18-3.74 Unspecified specimen by Automated count (test code = 07864-0) mono # (test code = mono #) 1.28 K/uL 0.24-0.86 H eos # (test code = eos #) 0.09 K/uL 0.04-0.36 basophil # (test code = basophil 0.02 K/uL 0.01-0.08 #) NRBC% (test code = NRBC%) 0 /100 WBC 0-0.2 NRBC# (test code = NRBC#) 0 K/uL [facility] HospitalDifferential panel, method unspecified - [id number] 03:48:00NeutrophilsBandLymphocyteAtypical LymphMonocyteEosinophilBasophilMetamyelocyteMyelocytePromyelocyteBlastsNucleated Red Blood CellDifferential CommentAbs Neutrophil Count (Man)Abs Lymph Count (Man)Abs Monocyte Count (Man)Abs Eosinophil Count (Man)Abs Basophil Count (Man)Platelet EstimatePlatelet Morphol ogyPolychromasiaHypochromasiaAnisocytosisMicrocytosisMacrocytosisTarget CellsOvalocytesToxic GranulationToxic VacuolationDifferential comment-[facility] W Auto Differential panel - [id number] 09:08:00 Test Item Value Reference Range Interpretation Comments white blood count (test code = 11.7 K/uL 4.0-11.5 H white blood count) red blood count (test code = red 4.08 M/uL 3.80-5.20 blood count) hemoglobin (test code = 8.4 g/dL 10.5-15.7 L hemoglobin) hematocrit (test code = 29.5 % 34.0-50.0 L hematocrit) MCV [Entitic volume] (test code = 72.3 fL 86-100 L 77625-7) mean corpuscular hemoglobin (test 20.6 pg 26.2-33.4 L code = mean corpuscular hemoglobin) mean corpuscular HGB conc (test 28.5 g/dL 30-34 L code = mean corpuscular HGB conc) red cell distribution width (test 18.1 % 12.0-15.5 H code = red cell distribution width) platelet count (test code = 220 K/uL 165-450 platelet count) mean platelet volume (test code = 9.9 fL 9.4-12.6 mean platelet volume) Segmented neutrophils/100 79.5 % 44.4-80.1 leukocytes in Blood (test code = 67561-1) Immature granulocytes [#/volume] 0.1 K/uL 0.0-0.03 H in Blood (test code = 10457-8) lymphocyte% (test code = 11.9 % 10.0-50.0 lymphocyte%) mono % (test code = mono %) 7.0 % 3.6-12.0 eos % (test code = eos %) 0.5 % 0.0-5.4 Basophils/100 leukocytes in 0.3 % 0.1-1.2 Unspecified specimen (test code = 10999-7) Band form neutrophils [#/volume] 9.29 K/uL 1.56-6.13 H in Blood (test code = 21742-7) Lymphocytes [#/volume] in 1.4 K/uL 1.18-3.74 Unspecified specimen by Automated count (test code = 65120-5) mono # (test code = mono #) 0.82 K/uL 0.24-0.86 eos # (test code = eos #) 0.06 K/uL 0.04-0.36 basophil # (test code = basophil 0.03 K/uL 0.01-0.08 #) NRBC% (test code = NRBC%) 0 /100 WBC 0-0.2 NRBC# (test code = NRBC#) 0 K/uL [facility]Different[facility], method unspecified - [id number] 09:08:00NeutrophilsBandLymphocyteAtypical LymphMonocyteEosinophilBasophilAbs Neutrophil Count (Man)Abs LymphCount (Man)Abs Monocyte Count (Man)Abs Eosinophil Count (Man)Abs Basophil Count (Man)Platelet EstimatePlatelet MorphologyPoikilocytosisToxic GranulationMatagoInfirmary LTAC Hospital GroupBlood type and Indirect antibody screen panel - [id number] 09:08:00 Test Item Value Reference Range Interpretation Comments Rh [Type] in Blood (test code = 4+ 86603-5) ABO and Rh group panel - Blood A positive (test code = 62598-0) [facility] HospitalReagin Ab [Presence] in Serum by [id number] 09:08:00 Test Item Value Reference Range Interpretation Comments Reagin Ab [Presence] in Serum by nonreactive nonreactive RPR (test code = 21256-1) [facility] HospitalHepatitis B virus surface Ag [Presence] in Serum 2020-04-27 09:08:00 Test Item Value Reference Range Interpretation Comments .hepatitis B surface antigen (test negative negative code = .hepatitis B surface antigen) [facility] HospitalUrinalysis macro (dipstick) panel - [id number] 14:02:00 Test Item Value Reference Range Interpretation Comments Leukocytes (test code = Leukocytes) Trace Nitrite (test code = Nitrite) negative Urobilinogen (test code = .2 Urobilinogen) Protein (test code = Protein) Negative pH (test code = pH) 7.0 Blood (test code = Blood) Negative Specific [place] (test code = 1.020 Specific [place]) Ketone (test code = Ketone) Negative Bilirubin (test code = Bilirubin) Negative Glucose (test code = Glucose) Negative Appearance (test code = Appearance) Clear Color (test code = Color) Yellow [facility] HospitalUrinalysis macro (dipstick) panel - [id number] 14:31:41 Test Item Value Reference Range Interpretation Comments Leukocytes (test code = Leukocytes) Negative Nitrite (test code = Nitrite) negative Urobilinogen (test code = .2 Urobilinogen) Protein (test code = Protein) Negative pH (test code = pH) 6.0 Blood (test code = Blood) Negative Specific [place] (test code = 1.015 Specific [place]) Ketone (test code = Ketone) Trace Bilirubin (test code = Bilirubin) Negative Glucose (test code = Glucose) Negative Appearance (test code = Appearance) Clear Color (test code = Color) Yellow [facility] HospitalUrinalysis macro (dipstick) panel - [id number] 14:31:41 Test Item Value Reference Range Interpretation Comments Leukocytes (test code = Leukocytes) Negative Nitrite (test code = Nitrite) negative Urobilinogen (test code = .2 Urobilinogen) Protein (test code = Protein) Negative pH (test code = pH) 6.0 Blood (test code = Blood) Negative Specific [place] (test code = 1.015 Specific [place]) Ketone (test code = Ketone) Trace Bilirubin (test code = Bilirubin) Negative Glucose (test code = Glucose) Negative Appearance (test code = Appearance) Clear Color (test code = Color) Yellow [facility] HospitalUrinalysis macro (dipstick) panel - [id number] 14:31:41 Test Item Value Reference Range Interpretation Comments Leukocytes (test code = Leukocytes) Negative Nitrite (test code = Nitrite) negative Urobilinogen (test code = .2 Urobilinogen) Protein (test code = Protein) Negative pH (test code = pH) 6.0 Blood (test code = Blood) Negative Specific [place] (test code = 1.015 Specific [place]) Ketone (test code = Ketone) Trace Bilirubin (test code = Bilirubin) Negative Glucose (test code = Glucose) Negative Appearance (test code = Appearance) Clear Color (test code = Color) [facility]Neisseria gonorrhoeae DNA [Presence] in Unspecified specimen by ELIDA with [id number] 00:00:00 Test Item Value Reference Range Interpretation Comments chlamydia trachomatis by real-time negative PCR (reflex to azithromycin resistance by pyrosequencing) (test code = chlamydia trachomatis by real-time PCR (reflex to azithromycin resistance by pyrosequencing)) neisseria gonorrhoeae by real-time negative PCR (reflex to antibiotic resistance by molecular analysis) (test code = neisseria gonorrhoeae by real-time PCR (reflex to antibiotic resistance by molecular analysis)) [facility] [Presence] in Unspecified specimen by Organism specific [id number] 00:00:00 Test Item Value Reference Range Interpretation Comments group B streptococcus (gbs) by negative real-time PCR (test code = group B streptococcus (gbs) by real-time PCR) [facility] HospitalChlamydia trachomatis+Neisseria gonorrhoeae DNA [Presence] in Unspecified specimen by ELIDA with [id number] 00:00:00 Test Item Value Reference Range Interpretation Comments chlamydia trachomatis by real-time negative PCR (reflex to azithromycin resistance by pyrosequencing) (test code = chlamydia trachomatis by real-time PCR (reflex to azithromycin resistance by pyrosequencing)) neisseria gonorrhoeae by real-time negative PCR (reflex to antibiotic resistance by molecular analysis) (test code = neisseria gonorrhoeae by real-time PCR (reflex to antibiotic resistance by molecular analysis)) [facility]actiae [Presence] in Unspecified specimen by Organism specific [id number] 00:00:00 Test Item Value Reference Range Interpretation Comments group B streptococcus (gbs) by negative real-time PCR (test code = group B streptococcus (gbs) by real-time PCR) [facility] W Auto Differential panel - [id number] 07:41:00 Test Item Value Reference Range Interpretation Comments white blood count (test code = 10.0 K/uL 4.0-11.5 white blood count) red blood count (test code = red 4.01 M/uL 3.80-5.20 blood count) hemoglobin (test code = 8.4 g/dL 10.5-15.7 L hemoglobin) hematocrit (test code = 30.0 % 34.0-50.0 L hematocrit) MCV [Entitic volume] (test code = 74.8 fL 86-100 L 25089-2) mean corpuscular hemoglobin (test 20.9 pg 26.2-33.4 L code = mean corpuscular hemoglobin) mean corpuscular HGB conc (test 28.0 g/dL 30-34 L code = mean corpuscular HGB conc) red cell distribution width (test 16.4 % 12.0-15.5 H code = red cell distribution width) platelet count (test code = 251 K/uL 165-450 platelet count) mean platelet volume (test code = 9.7 fL 9.4-12.6 mean platelet volume) Segmented neutrophils/100 73.1 % 44.4-80.1 leukocytes in Blood (test code = 93907-4) Immature granulocytes [#/volume] 0.1 K/uL 0.0-0.03 H in Blood (test code = 30402-8) lymphocyte% (test code = 16.7 % 10.0-50.0 lymphocyte%) mono % (test code = mono %) 8.1 % 3.6-12.0 eos % (test code = eos %) 0.8 % 0.0-5.4 Basophils/100 leukocytes in 0.3 % 0.1-1.2 Unspecified specimen (test code = 68482-3) Band form neutrophils [#/volume] 7.33 K/uL 1.56-6.13 H in Blood (test code = 07883-9) Lymphocytes [#/volume] in 1.7 K/uL 1.18-3.74 Unspecified specimen by Automated count (test code = 53045-6) mono # (test code = mono #) 0.81 K/uL 0.24-0.86 eos # (test code = eos #) 0.08 K/uL 0.04-0.36 basophil # (test code = basophil 0.03 K/uL 0.01-0.08 #) NRBC% (test code = NRBC%) 0 /100 WBC 0-0.2 NRBC# (test code = NRBC#) 0 K/uL [facility] HospitalBlood group antibody screen [Presence] in Serum or Plasma 2020-02-04 07:41:00 Test Item Value Reference Range Interpretation Comments Blood group antibody screen negative [Presence] in Serum or Plasma (test code = 890-4) [facility] HospitalReagin Ab [Presence] in Serum by [id number] 07:41:00 Test Item Value Reference Range Interpretation Comments Reagin Ab [Presence] in Serum by nonreactive nonreactive RPR (test code = 16120-6) [facility] HospitalHIV 1+2 Ab [Presence] in [id number] 07:41:00HIV P24 AgHIV-1/2 AbMataMerit Health RankinUrinalysis macro (dipstick) panel - Urine 2020-01-14 11:37:16 Test Item Value Reference Range Interpretation Comments Leukocytes (test code = Leukocytes) Negative Nitrite (test code = Nitrite) negative Urobilinogen (test code = .2 Urobilinogen) Protein (test code = Protein) Negative pH (test code = pH) 6.0 Blood (test code = Blood) Negative Specific [place] (test code = 1.025 Specific [place]) Ketone (test code = Ketone) Negative Bilirubin (test code = Bilirubin) Negative Glucose (test code = Glucose) Negative Appearance (test code = Appearance) Clear Color (test code = Color) Yellow [facility] HospitalUrinalysis macro (dipstick) panel - [id number] 11:37:16 Test Item Value Reference Range Interpretation Comments Leukocytes (test code = Leukocytes) Negative Nitrite (test code = Nitrite) negative Urobilinogen (test code = .2 Urobilinogen) Protein (test code = Protein) Negative pH (test code = pH) 6.0 Blood (test code = Blood) Negative Specific [place] (test code = 1.025 Specific [place]) Ketone (test code = Ketone) Negative Bilirubin (test code = Bilirubin) Negative Glucose (test code = Glucose) Negative Appearance (test code = Appearance) Clear Color (test code = Color) Yellow [facility] HospitalUrinalysis macro (dipstick) panel - [id number] 14:11:12 Test Item Value Reference Range Interpretation Comments Leukocytes (test code = Leukocytes) Negative Nitrite (test code = Nitrite) negative Urobilinogen (test code = .2 Urobilinogen) Protein (test code = Protein) Negative pH (test code = pH) 7.0 Blood (test code = Blood) Negative Specific [place] (test code = 1.015 Specific [place]) Ketone (test code = Ketone) Negative Bilirubin (test code = Bilirubin) Negative Glucose (test code = Glucose) Negative Appearance (test code = Appearance) Clear Color (test code = Color) Yellow [facility] HospitalUrinalysis macro (dipstick) panel - [id number] 14:11:12 Test Item Value Reference Range Interpretation Comments Leukocytes (test code = Leukocytes) Negative Nitrite (test code = Nitrite) negative Urobilinogen (test code = .2 Urobilinogen) Protein (test code = Protein) Negative pH (test code = pH) 7.0 Blood (test code = Blood) Negative Specific [place] (test code = 1.015 Specific [place]) Ketone (test code = Ketone) Negative Bilirubin (test code = Bilirubin) Negative Glucose (test code = Glucose) Negative Appearance (test code = Appearance) Clear Color (test code = Color) Yellow [employer] GroupUrinalysis macro (dipstick) panel - [id number] 09:36:50 Test Item Value Reference Range Interpretation Comments Leukocytes (test code = Leukocytes) Trace Nitrite (test code = Nitrite) negative Urobilinogen (test code = .2 Urobilinogen) Protein (test code = Protein) Negative pH (test code = pH) 6.5 Blood (test code = Blood) Negative Specific [place] (test code = 1.025 Specific [place]) Ketone (test code = Ketone) Negative Bilirubin (test code = Bilirubin) Negative Glucose (test code = Glucose) Negative Appearance (test code = Appearance) Clear Color (test code = Color) Yellow [facility] (dip[facility] panel - [id number] 09:36:50 Test Item Value Reference Range Interpretation Comments Leukocytes (test code = Leukocytes) Trace Nitrite (test code = Nitrite) negative Urobilinogen (test code = .2 Urobilinogen) Protein (test code = Protein) Negative pH (test code = pH) 6.5 Blood (test code = Blood) Negative Specific [place] (test code = 1.025 Specific [place]) Ketone (test code = Ketone) Negative Bilirubin (test code = Bilirubin) Negative Glucose (test code = Glucose) Negative Appearance (test code = Appearance) Clear Color (test code = Color) Yellow [facility]Ur[facility] (dipstick) panel - [id number] 09:36:50 Test Item Value Reference Range Interpretation Comments Leukocytes (test code = Leukocytes) Trace Nitrite (test code = Nitrite) negative Urobilinogen (test code = .2 Urobilinogen) Protein (test code = Protein) Negative pH (test code = pH) 6.5 Blood (test code = Blood) Negative Specific [place] (test code = 1.025 Specific [place]) Ketone (test code = Ketone) Negative Bilirubin (test code = Bilirubin) Negative Glucose (test code = Glucose) Negative Appearance (test code = Appearance) Clear Color (test code = Color) Yellow [facility] GroupUrinalysis macro (dipstick) panel - [id number] 11:21:04 Test Item Value Reference Range Interpretation Comments Leukocytes (test code = Leukocytes) Trace Nitrite (test code = Nitrite) negative Urobilinogen (test code = .2 Urobilinogen) Protein (test code = Protein) Negative pH (test code = pH) 7.0 Blood (test code = Blood) Negative Specific [place] (test code = 1.025 Specific [place]) Ketone (test code = Ketone) Negative Bilirubin (test code = Bilirubin) Negative Glucose (test code = Glucose) Negative Appearance (test code = Appearance) Clear Color (test code = Color) Yellow [facility] HospitalUrinalysis macro (dipstick) panel - [id number] 11:21:04 Test Item Value Reference Range Interpretation Comments Leukocytes (test code = Leukocytes) Trace Nitrite (test code = Nitrite) negative Urobilinogen (test code = .2 Urobilinogen) Protein (test code = Protein) Negative pH (test code = pH) 7.0 Blood (test code = Blood) Negative Specific [place] (test code = 1.025 Specific [place]) Ketone (test code = Ketone) Negative Bilirubin (test code = Bilirubin) Negative Glucose (test code = Glucose) Negative Appearance (test code = Appearance) Clear Color (test code = Color) Yellow [facility] HospitalUrinalysis macro (dipstick) panel - [id number] 11:21:04 Test Item Value Reference Range Interpretation Comments Leukocytes (test code = Leukocytes) Trace Nitrite (test code = Nitrite) negative Urobilinogen (test code = .2 Urobilinogen) Protein (test code = Protein) Negative pH (test code = pH) 7.0 Blood (test code = Blood) Negative Specific [place] (test code = 1.025 Specific [place]) Ketone (test code = Ketone) Negative Bilirubin (test code = Bilirubin) Negative Glucose (test code = Glucose) Negative Appearance (test code = Appearance) Clear Color (test code = Color) Yellow [facility] HospitalUrinalysis macro (dipstick) panel - [id number] 11:21:04 Test Item Value Reference Range Interpretation Comments Leukocytes (test code = Leukocytes) Trace Nitrite (test code = Nitrite) negative Urobilinogen (test code = .2 Urobilinogen) Protein (test code = Protein) Negative pH (test code = pH) 7.0 Blood (test code = Blood) Negative Specific [place] (test code = 1.025 Specific [place]) Ketone (test code = Ketone) Negative Bilirubin (test code = Bilirubin) Negative Glucose (test code = Glucose) Negative Appearance (test code = Appearance) Clear Color (test code = Color) Yellow [facility], LB + CT/NG/TV + reflex HR [id number] 00:00:00 Test Item Value Reference Range Interpretation Comments chlamydia trachomatis by real-time negative PCR (reflex to azithromycin resistance by pyrosequencing) (test code = chlamydia trachomatis by real-time PCR (reflex to azithromycin resistance by pyrosequencing)) trichomonas vaginalis by real-time negative PCR (reflex to metronidazole resistance) (test code = trichomonas vaginalis by real-time PCR (reflex to metronidazole resistance)) neisseria gonorrhoeae by real-time negative PCR (reflex to antibiotic resistance by molecular analysis) (test code = neisseria gonorrhoeae by real-time PCR (reflex to antibiotic resistance by molecular analysis)) liquid Pap test with reflex to HPV negative type-detect 3.0 high risk if ASCUS (test code = liquid Pap test with reflex to HPV type-detect 3.0 high risk if ASCUS) [facility], LB + CT/NG/TV + reflex HR [id number] 00:00:00 Test Item Value Reference Range Interpretation Comments chlamydia trachomatis by real-time negative PCR (reflex to azithromycin resistance by pyrosequencing) (test code = chlamydia trachomatis by real-time PCR (reflex to azithromycin resistance by pyrosequencing)) trichomonas vaginalis by real-time negative PCR (reflex to metronidazole resistance) (test code = trichomonas vaginalis by real-time PCR (reflex to metronidazole resistance)) neisseria gonorrhoeae by real-time negative PCR (reflex to antibiotic resistance by molecular analysis) (test code = neisseria gonorrhoeae by real-time PCR (reflex to antibiotic resistance by molecular analysis)) liquid Pap test with reflex to HPV negative type-detect 3.0 high risk if ASCUS (test code = liquid Pap test with reflex to HPV type-detect 3.0 high risk if ASCUS) [facility] W Auto Differential panel - [id number] 10:21:00 Test Item Value Reference Range Interpretation Comments white blood count (test code = 10.6 K/uL 4.0-11.5 white blood count) red blood count (test code = red 4.60 M/uL 3.80-5.20 blood count) hemoglobin (test code = 10.1 g/dL 10.5-15.7 L hemoglobin) hematocrit (test code = 33.9 % 34.0-50.0 L hematocrit) MCV [Entitic volume] (test code = 73.7 fL 86-100 L 75771-9) mean corpuscular hemoglobin (test 22.0 pg 26.2-33.4 L code = mean corpuscular hemoglobin) mean corpuscular HGB conc (test 29.8 g/dL 30-34 L code = mean corpuscular HGB conc) red cell distribution width (test 15.9 % 12.0-15.5 H code = red cell distribution width) platelet count (test code = 300 K/uL 165-450 platelet count) mean platelet volume (test code = 9.1 fL 9.4-12.6 L mean platelet volume) Segmented neutrophils/100 81.2 % 44.4-80.1 H leukocytes in Blood (test code = 68311-6) Immature granulocytes [#/volume] 0.0 K/uL 0.0-0.03 in Blood (test code = 58845-2) lymphocyte% (test code = 11.8 % 10.0-50.0 lymphocyte%) mono % (test code = mono %) 6.3 % 3.6-12.0 eos % (test code = eos %) 0.2 % 0.0-5.4 Basophils/100 leukocytes in 0.1 % 0.1-1.2 Unspecified specimen (test code = 47643-2) Band form neutrophils [#/volume] 8.57 K/uL 1.56-6.13 H in Blood (test code = 29658-2) Lymphocytes [#/volume] in 1.3 K/uL 1.18-3.74 Unspecified specimen by Automated count (test code = 87108-5) mono # (test code = mono #) 0.66 K/uL 0.24-0.86 eos # (test code = eos #) 0.02 K/uL 0.04-0.36 L basophil # (test code = basophil 0.01 K/uL 0.01-0.08 #) NRBC% (test code = NRBC%) 0 /100 WBC 0-0.2 NRBC# (test code = NRBC#) 0 K/uL [facility] GroupHIV [facility]2 Ab [Presence] in [id number] 10:21:00HIV P24 AgHIV-1/2 AbMataHolden Memorial Hospital GroupABO & Rh group [Type] in [id number] 10:21:00 Test Item Value Reference Range Interpretation Comments Rh [Type] in Blood (test code = 4+ 25881-7) ABO and Rh group panel - Blood A positive (test code = 33669-5) [facility] GroupBlood group antibody screen [Presence] in Serum or Plasma 2019-10-03 10:21:00 Test Item Value Reference Range Interpretation Comments Blood group antibody screen negative [Presence] in Serum or Plasma (test code = 890-4) [facility] HospitalReagin Ab [Presence] in Serum by [id number] 10:21:00 Test Item Value Reference Range Interpretation Comments Reagin Ab [Presence] in Serum by nonreactive nonreactive RPR (test code = 18852-2) [facility] HospitalCB W Auto Differential panel - [id number] 10:21:00 Test Item Value Reference Range Interpretation Comments white blood count (test code = 10.6 K/uL 4.0-11.5 white blood count) red blood count (test code = red 4.60 M/uL 3.80-5.20 blood count) hemoglobin (test code = 10.1 g/dL 10.5-15.7 L hemoglobin) hematocrit (test code = 33.9 % 34.0-50.0 L hematocrit) MCV [Entitic volume] (test code = 73.7 fL 86-100 L 12419-6) mean corpuscular hemoglobin (test 22.0 pg 26.2-33.4 L code = mean corpuscular hemoglobin) mean corpuscular HGB conc (test 29.8 g/dL 30-34 L code = mean corpuscular HGB conc) red cell distribution width (test 15.9 % 12.0-15.5 H code = red cell distribution width) platelet count (test code = 300 K/uL 165-450 platelet count) mean platelet volume (test code = 9.1 fL 9.4-12.6 L mean platelet volume) Segmented neutrophils/100 81.2 % 44.4-80.1 H leukocytes in Blood (test code = 45160-6) Immature granulocytes [#/volume] 0.0 K/uL 0.0-0.03 in Blood (test code = 84733-1) lymphocyte% (test code = 11.8 % 10.0-50.0 lymphocyte%) mono % (test code = mono %) 6.3 % 3.6-12.0 eos % (test code = eos %) 0.2 % 0.0-5.4 Basophils/100 leukocytes in 0.1 % 0.1-1.2 Unspecified specimen (test code = 08276-2) Band form neutrophils [#/volume] 8.57 K/uL 1.56-6.13 H in Blood (test code = 87907-3) Lymphocytes [#/volume] in 1.3 K/uL 1.18-3.74 Unspecified specimen by Automated count (test code = 57226-3) mono # (test code = mono #) 0.66 K/uL 0.24-0.86 eos # (test code = eos #) 0.02 K/uL 0.04-0.36 L basophil # (test code = basophil 0.01 K/uL 0.01-0.08 #) NRBC% (test code = NRBC%) 0 /100 WBC 0-0.2 NRBC# (test code = NRBC#) 0 K/uL [facility] GroupHIV [facility]+2 Ab [Presence] in [id number] 10:21:00HIV P24 AgHIV-1/2 AbMatagopatient's choice [facility] Medical GroupABO & Rh group [Type] in [id number] 10:21:00 Test Item Value Reference Range Interpretation Comments Rh [Type] in Blood (test code = 4+ 44485-4) ABO and Rh group panel - Blood A positive (test code = 46114-2) [facility] GroupBlood group antibody screen [Presence] in Serum or Plasma 2019-10-03 10:21:00 Test Item Value Reference Range Interpretation Comments Blood group antibody screen negative [Presence] in Serum or Plasma (test code = 890-4) [facility] HospitalReagin Ab [Presence] in Serum by [id number] 10:21:00 Test Item Value Reference Range Interpretation Comments Reagin Ab [Presence] in Serum by nonreactive nonreactive RPR (test code = 53223-4) [facility] HospitalHepatitis B virus surface Ag [Presence] in Serum 2019-10-03 10:21:00 Test Item Value Reference Range Interpretation Comments .hepatitis B surface antigen (test negative negative code = .hepatitis B surface antigen) [facility] HospitalBacteria identified in Urine by [id number] 10:21:00Bacteria Ur CultSharkey Iss[facility]ena [facility] HospitalCB W Auto Differential panel - [id number] 10:21:00 Test Item Value Reference Range Interpretation Comments white blood count (test code = 10.6 K/uL 4.0-11.5 white blood count) red blood count (test code = red 4.60 M/uL 3.80-5.20 blood count) hemoglobin (test code = 10.1 g/dL 10.5-15.7 L hemoglobin) hematocrit (test code = 33.9 % 34.0-50.0 L hematocrit) MCV [Entitic volume] (test code = 73.7 fL 86-100 L 14979-7) mean corpuscular hemoglobin (test 22.0 pg 26.2-33.4 L code = mean corpuscular hemoglobin) mean corpuscular HGB conc (test 29.8 g/dL 30-34 L code = mean corpuscular HGB conc) red cell distribution width (test 15.9 % 12.0-15.5 H code = red cell distribution width) platelet count (test code = 300 K/uL 165-450 platelet count) mean platelet volume (test code = 9.1 fL 9.4-12.6 L mean platelet volume) Segmented neutrophils/100 81.2 % 44.4-80.1 H leukocytes in Blood (test code = 95841-4) Immature granulocytes [#/volume] 0.0 K/uL 0.0-0.03 in Blood (test code = 11551-0) lymphocyte% (test code = 11.8 % 10.0-50.0 lymphocyte%) mono % (test code = mono %) 6.3 % 3.6-12.0 eos % (test code = eos %) 0.2 % 0.0-5.4 Basophils/100 leukocytes in 0.1 % 0.1-1.2 Unspecified specimen (test code = 55827-1) Band form neutrophils [#/volume] 8.57 K/uL 1.56-6.13 H in Blood (test code = 55650-9) Lymphocytes [#/volume] in 1.3 K/uL 1.18-3.74 Unspecified specimen by Automated count (test code = 77359-8) mono # (test code = mono #) 0.66 K/uL 0.24-0.86 eos # (test code = eos #) 0.02 K/uL 0.04-0.36 L basophil # (test code = basophil 0.01 K/uL 0.01-0.08 #) NRBC% (test code = NRBC%) 0 /100 WBC 0-0.2 NRBC# (test code = NRBC#) 0 K/uL [facility] [Presence] in [id number] 10:21:00HIV P24 AgHIV-1/2 [facility] & Rh group [Type] in [id number] 10:21:00 Test Item Value Reference Range Interpretation Comments Rh [Type] in Blood (test code = 4+ 87315-7) ABO and Rh group panel - Blood A positive (test code = 02366-6) [facility] group antibody screen [Presence] in Serum or Plasma 2019-10-03 10:21:00 Test Item Value Reference Range Interpretation Comments Blood group antibody screen negative [Presence] in Serum or Plasma (test code = 890-4) [facility] GroupReagin Ab [Presence] in Serum by [id number] 10:21:00 Test Item Value Reference Range Interpretation Comments Reagin Ab [Presence] in Serum by nonreactive nonreactive RPR (test code = 43432-2) [facility] GroupHepatitis B virus surface Ag [Presence] in Serum 2019-10-03 10:21:00 Test Item Value Reference Range Interpretation Comments .hepatitis B surface antigen (test negative negative code = .hepatitis B surface antigen) [facility] Urine by [id number] 10:21:00Bacteria Ur [facility]2019-11-18 13:58:27 Test Item Value Reference Range Interpretation Comments Right (test code = Type C Peak is on Left Right) Left (test code = Left) Type C Peak is on Left [facility]2019-10-16 09:36:09 Test Item Value Reference Range Interpretation Comments Right (test code = Type C Peak is on Left Right) Left (test code = Type A Normal Left) [facility] [id number] 19:38:00 Test Item Value Reference Range Interpretation Comments POCT PREG (test code = 1605) Negative On board controls acceptable with C Yes Line (test code = 3574) POCT PREG LOT # (test code = 3575) POCT PREG TEST DATE (test code = 3576) [facility]
[2022-03-29] MEDS ORDERED: NA CHLORIDE 0.9% 1,000 ML ONE ×2 (14:35→16:41)
[2022-03-29 14:41] LABS: Urine Blood Trace-lysed (Negative); Urine Glucose Negative (Negative); Urine Protein 1+ (Negative); Urine Specific Gravity 1.025 (1.005-1.030); Urine pH 5.5 (5.0-7.0)
[2022-03-29 14:48] LABS: Absolute Lymphocytes (CBC) 1.9 K/uL (0.7-4.9); Hematocrit 36.7 % (36.0-45.0); Lymphocytes % 22.7 % (15.3-44.8); MCV 73.3 fL (80-100); MPV 7.2 fL (7.6-11.3); RBC Red Blood Cell Count 5.01 M/uL (3.86-4.86)
--- NOTE | 2022-03-29 15:04 | RAD REPORT ---
EXAM DESCRIPTION: CT - CTHCSPWOC - 03/29/2022 2:55 pm CLINICAL HISTORY: Trauma, head and neck injury. Headache COMPARISON: No comparisons TECHNIQUE: Axial 5 mm thick images of the head were obtained. Axial 2 mm thick images of the cervical spine were obtained with sagittal and coronal reconstruction images generated and reviewed. All CT scans are performed using dose optimization technique as appropriate and may include automated exposure control or mA/KV adjustment according to patient size. FINDINGS: CT HEAD WITHOUT CONTRAST: No acute hemorrhage, hydrocephalus or extra-axial collection is identified.No areas of brain edema or midline shift. The paranasal sinuses and mastoids are clear.The calvarium is intact. CT CERVICAL SPINE WITHOUT CONTRAST: No fracture or subluxation.No prevertebral soft tissues swelling is identified. IMPRESSION: No acute intracranial or cervical spine findings.
[2022-03-29 15:22] LABS: Albumin 4.5 g/dL (3.4-5.0); Bilirubin Total 0.6 mg/dL (0.2-1.0); Potassium 3.9 mmol/L (3.5-5.1); Protein, Total 8.3 g/dL (6.4-8.2)
[2022-03-29 15:23] LABS: Barbiturates NEGATIVE (NEGATIVE); Benzodiazepines NEGATIVE (NEGATIVE); Cocaine NEGATIVE (NEGATIVE); METHAMPHETAM NEGATIVE (NEGATIVE); Methadone NEGATIVE (NEGATIVE); Opiates NEGATIVE (NEGATIVE); Phencyclidine NEGATIVE (NEGATIVE); THC Cannibis NEGATIVE (NEGATIVE)
[2022-03-29] MEDS ORDERED: METOCLOPRAMIDE 10 MG/2mL INJ ONE (16:40)
[2022-03-29] MEDS ORDERED: KETOROLAC 30 MG/ML INJ ONE (16:41)
[2022-03-29] MEDS ORDERED: DIPHENHYDRAMINE 50 MG/ML VIAL ONE (16:41)
--- NOTE | 2022-03-29 16:48 | EDPHYS ---
Physician Documentation [facility] Name: Malini Kelley Age: 26 yrs Sex: Female : 1995 Arrival Date: 03/29/2022 Time: 13:54 Bed 14 Private MD: ED Physician Ck Leong HPI: 03/29 14:16 This 26 yrs old Female presents to ER via Ambulatory with complaints of Numbness Of pm1 Arm, Numbness Of Face, Dizziness. 14:16 The patient presents to the emergency department with paresthesias of the left upper pm1 extremity, left side of the face. Onset: The symptoms/episode began/occurred 3 day(s) ago. Context: occurred while the patient was driving. Associated signs and symptoms: Pertinent positives: dizziness, headache. Severity of symptoms: in the emergency department the symptoms have improved no longer across all extremities. Just to left side of face and left arm now. Patient's baseline: Neuro: alert and fully oriented, Motor: no deficits, Ambulation: walks without assistance, Speech: normal. Current symptoms: headache, Left-sided facial and left arm numbness. The patient has not experienced similar symptoms in the past. 26-year-old female presents to the ER with complaints of numbness to left arm and left side of face. Patient also with headache and dizziness. Symptom onset on Sunday. Patient initially was driving her car and experienced bilateral arm and lower extremity numbness with tunnel vision. Patient went to [facility] and is evaluated and diagnosed with possible panic disorder. Patient sent home with Atarax and reports no improvement with the medication. Patient now reports left sided facial numbness and left arm numbness. No weakness present. 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 - Social history:: Smoking status: Patient denies any tobacco usage or history of. ROS: 14:16 Constitutional: Negative for fever, chills, and weight loss, Cardiovascular: Negative pm1 for chest pain, palpitations, and edema, Respiratory: Negative for shortness of breath, cough, wheezing, and pleuritic chest pain, Abdomen/GI: Negative for abdominal pain, nausea, vomiting, diarrhea, and constipation, Back: Negative for injury and pain, MS/Extremity: Negative for injury and deformity, Skin: Negative for injury, rash, and discoloration. 14:16 Neuro: Positive for dizziness, headache, Numbness to the left arm and left side of face. 14:16 All other systems are negative. Exam: 14:16 Constitutional: This is a well developed, well nourished patient who is awake, alert, pm1 and in no acute distress. Head/Face: Normocephalic, atraumatic. 14:16 Back: No spinal tenderness. No costovertebral tenderness. Full range of motion. Skin: Warm, dry with normal turgor. Normal color with no rashes, no lesions, and no evidence of cellulitis. MS/ Extremity: Pulses equal, no cyanosis. Neurovascular intact. Full, normal range of motion. 14:16 Cardiovascular: Exam negative for acute changes, Rate: normal, Rhythm: regular, Pulses: no pulse deficits are appreciated, Heart sounds: normal, normal S1and S2. 14:16 Respiratory: Exam negative for acute changes, respiratory distress, shortness of breath, Breath sounds: are clear throughout. 14:16 Abdomen/GI: Exam negative for acute changes, Inspection: abdomen appears normal, Palpation: abdomen is soft and non-tender, in all quadrants. 14:16 Neuro: Orientation: is normal, Mentation: is normal, Cranial nerves: CN II- XII are normal as tested, Cerebellar function: Romberg testing is negative, normal finger to nose testing, Motor: moves all fours, strength is 5/5 in all extremities, Sensation: numbness, that is mild, of the left arm, pin prick testing is normal, Gait: is steady, at a normal pace, without difficulty. Vital Signs: 14:00 BP 142 / 85; Pulse 130; Resp 18 S; Temp 98.2(TE); Pulse Ox 100% on R/A; Weight 54.43 kg aa5 (R); Height 5 ft. 6 in. (167.64 cm) (R); 14:15 BP 120 / 74 Supine; Pulse 113; Resp 18; Pulse Ox 99% ; ko1 14:16 BP 118 / 76 Sitting; Pulse 118; Resp 18; Pulse Ox 99% ; ko1 14:17 BP 116 / 81 Standing; Pulse 135; Resp 18; Pulse Ox 99% on R/A; ko1 15:00 BP 115 / 83; Pulse 83; Pulse Ox 100% ; ko1 17:27 BP 125 / 60; Pulse 80; Resp 16; Pulse Ox 100% ; ko1 17:46 BP 117 / 75; Pulse 82; Resp 18; Pulse Ox 99% ; ko1 14:00 Body Mass Index 19.37 (54.43 kg, 167.64 cm) aa5 MDM: 13:57 Patient medically screened. pm1 16:30 Counseling: I had a detailed discussion with the patient and/or guardian regarding: the pm1 historical points, exam findings, and any diagnostic results supporting the discharge/admit diagnosis, lab results, radiology results, the need for outpatient follow up, a neurologist, to return to the emergency department if symptoms worsen or persist or if there are any questions or concerns that arise at home. 16:35 Data reviewed: vital signs. pm1 16:35 Management of patient was discussed with the following: Valve Setter: Dr. Falk. pm1 Discussed patient presentation and her concerns regarding possible MS. Patient will require outpatient tests. Other differentials include atypical migraine, seizure disorder. Possible treatment modality is treated for seizure disorder with Keppra. Discussed conversation with Dr. Cavazos to the patient and she is happy that she will be able to be seen next week with Dr. Falk. Due to possible atypical migraine presentation and patient currently having headache we will treat with headache medications. Patient does not want to start with seizure disorder medications until diagnosis. 16:35 ED course: Differential diagnosis: CVA, headache, MS, paresthesia, seizure disorder. pm1 03/29 14:16 Order name: CBC with Diff; Complete Time: 15:14 pm1 03/29 14:16 Order name: CMP; Complete Time: 15:26 pm1 03/29 14:16 Order name: UDS; Complete Time: 15:26 pm03/29 14:16 Order name: CT Head C Spine; Complete Time: 15:14 pm1 03/29 14:41 Order name: Urine Dipstick-Ancillary; Complete Time: 14:46 EDMS 03/29 14:44 Order name: Urine --Ancillary (enter results) bd 03/29 14:16 Order name: IV Saline Lock; Complete Time: 14:39 pm1 03/29 14:16 Order name: Urine Dipstick-Ancillary (obtain specimen); Complete Time: 14:39 pm1 03/29 14:16 Order name: EKG; Complete Time: 14:17 pm1 03/29 14:16 Order name: Urine Test (obtain specimen); Complete Time: 14:39 pm1 03/29 14:16 Order name: EKG - Nurse/Tech; Complete Time: 14:49 pm1 03/29 14:16 Order name: Orthostatic Blood Pressure; Complete Time: 14:41 pm1 EC:59 Rate is 75 beats/min. Rhythm is regular, Normal Sinus Rhythm. QRS [place] is Normal. [place] pm1 interval is normal. QRS interval is normal. QT interval is normal. No Q waves. T waves are Normal. No ST changes noted. Clinical impression: Normal ECG. Administered Medications: 14:38 Drug: NS 0.9% 1000 ml Route: IV; Rate: 1000 ml; Site: right antecubital; ko1 15:15 Follow up: Response: No adverse reaction; IV Intake: 1000ml ko1 16:40 Drug: NS 0.9% 1000 ml Route: IV; Rate: 1000 ml; Site: left antecubital; ko1 17:28 Follow up: IV Intake: 1000ml ko1 17:48 Follow up: IV Status: Completed infusion ko1 16:43 Drug: Reglan (metoCLOPramide) 10 mg Route: IVP; Site: left antecubital; ko1 17:28 Follow up: Response: No adverse reaction ko1 16:43 Drug: Benadryl (diphenhydrAMINE) 12.5 mg Route: IVP; Site: left antecubital; ko1 17:28 Follow up: Response: No adverse reaction ko1 16:43 Drug: Ketorolac 30 mg Route: IVP; Site: left antecubital; ko1 17:28 Follow up: Response: No adverse reaction; Pain is decreased ko1 Disposition: 18:54 Co-signature as Attending Physician, Ck SHAH was immediately available on-site ms3 in the Emergency Department for consultation in the care of the patient. Disposition Summary: 03/29/22 16:47 Discharge Ordered Location: Home pm1 Problem: new pm1 Symptoms: have improved pm1 Condition: Stable pm1 Diagnosis - Paresthesia of skin pm1 Followup: pm1 - With: Emergency Department - When: As needed - Reason: Worsening of condition Followup: pm1 - With: Ugo Falk MD - When: 1 week - Reason: Recheck today's complaints, Continuance of care, Re-evaluation by your physician Discharge Instructions: - Discharge Summary Sheet pm1 - Paresthesia pm1 Forms: - Medication Reconciliation Form pm1 - Thank You Letter pm1 - Antibiotic Education pm1 - Prescription Opioid Use pm1 Signatures: Dispatcher [employer] EDMS Latisha Ward, RN RN aa5 Yogesh Galo, CHRISTIE MCAT INSTRUCTOR pm1 Ck Leong DO DO ms3 Sandy Montez, RN RN ko1
--- NOTE | 2022-03-29 16:48 | ER ---
Nurse's Notes [facility] Name: Malini Kelley Age: 26 yrs Sex: Female : 1995 Arrival Date: 03/29/2022 Time: 13:54 Bed 14 Private MD: Diagnosis: Paresthesia of skin Presentation: 03/29 14:00 Chief complaint: Patient states: numbness to left arm and left side of face x 2 days aa5 ago. Pt also reports generalized weakness, headache, and "feeling sleepy" x 2 days ago. Pt reports abnormal MRI December 2021, states "it showed white matter". 14:00 Coronavirus screen: At this time, the client does not indicate any symptoms associated aa5 with coronavirus-19. Ebola Screen: Patient denies travel to an Ebola-affected area in the 21 days before illness onset. Initial Sepsis Screen: Does the patient meet any 2 criteria? No. Patient's initial sepsis screen is negative. Does the patient have a suspected source of infection? No. Patient's initial sepsis screen is negative. Risk Assessment: Do you want to hurt yourself or someone else? Patient reports no desire to harm self or others. Onset of symptoms was March 2022. 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 - Social history:: Smoking status: Patient denies any tobacco usage or history of. Screenin:30 [facility] ED Fall Risk Assessment (Adult) History of falling in the last 3 months, ko1 including since admission No falls in past 3 months (0 pts) Confusion or Disorientation No (0 pts) Intoxicated or Sedated No (0 pts) Impaired Gait No (0 pts) Mobility Assist Device Used No (0 pt) Altered Elimination No (0 pt) Score/Fall Risk Level 0 - 2 = Low Risk Oriented to surroundings, Maintained a safe environment, Educated pt \\T\\ family on fall prevention, incl call for assistance when getting out of bed, Assessed \\T\\ reinforced patient's understanding of fall precautions, Provided non-skid footwear, Hourly rounding (assess needs \\T\\ fall precautionary measures) done, Used ambulatory aids as needed (educated on \\T\\ assisted with), Used gait belt as appropriate. Abuse screen: Denies threats or abuse. Denies injuries from another. Nutritional screening: No deficits noted. Tuberculosis screening: No symptoms or risk factors identified. Assessment: 14:20 General: Appears in no apparent distress. comfortable, slender, Behavior is ko1 cooperative, appropriate for age, anxious. Pain: Denies pain. Cardiovascular: No deficits noted. Respiratory: No deficits noted. GI: No deficits noted. : No deficits noted. EENT: No deficits noted. Derm: No deficits noted. Musculoskeletal: No deficits noted. 14:20 Neuro: Reports numbness in left arm. ko1 Vital Signs: 14:00 BP 142 / 85; Pulse 130; Resp 18 S; Temp 98.2(TE); Pulse Ox 100% on R/A; Weight 54.43 kg aa5 (R); Height 5 ft. 6 in. (167.64 cm) (R); 14:15 BP 120 / 74 Supine; Pulse 113; Resp 18; Pulse Ox 99% ; ko1 14:16 BP 118 / 76 Sitting; Pulse 118; Resp 18; Pulse Ox 99% ; ko1 14:17 BP 116 / 81 Standing; Pulse 135; Resp 18; Pulse Ox 99% on R/A; ko1 15:00 BP 115 / 83; Pulse 83; Pulse Ox 100% ; ko1 17:27 BP 125 / 60; Pulse 80; Resp 16; Pulse Ox 100% ; ko1 17:46 BP 117 / 75; Pulse 82; Resp 18; Pulse Ox 99% ; ko1 14:00 Body Mass Index 19.37 (54.43 kg, 167.64 cm) aa5 ED Course: 13:54 Patient arrived in ED. as 13:57 Yogesh Galo NP is PHCP. pm1 13:57 Ck Leong DO is Attending Physician. pm1 14:01 Arm band placed on. aa5 14:02 Triage completed. aa5 14:05 Sandy Montez, DYLAN is Primary Nurse. ko1 14:30 Patient has correct armband on for positive identification. Placed in gown. Bed in low ko1 position. Call light in reach. Side rails up X 1. powerhouse electrician apprentice on. Pulse ox on. NIBP on. 14:30 No provider procedures requiring assistance completed. Inserted saline lock: 22 gauge ko1 in right antecubital area, using aseptic technique. Blood collected. 14:49 CMP Sent. ko1 14:49 CBC with Diff Sent. ko1 14:56 CT Head C Spine In Process Unspecified. EDMS 16:47 Ugo Falk MD is Referral Physician. pm1 17:46 IV discontinued, intact, bleeding controlled, No redness/swelling at site. Pressure ko1 dressing applied. Administered Medications: 14:38 Drug: NS 0.9% 1000 ml Route: IV; Rate: 1000 ml; Site: right antecubital; ko1 15:15 Follow up: Response: No adverse reaction; IV Intake: 1000ml ko1 16:40 Drug: NS 0.9% 1000 ml Route: IV; Rate: 1000 ml; Site: left antecubital; ko1 17:28 Follow up: IV Intake: 1000ml ko1 17:48 Follow up: IV Status: Completed infusion ko1 16:43 Drug: Reglan (metoCLOPramide) 10 mg Route: IVP; Site: left antecubital; ko1 17:28 Follow up: Response: No adverse reaction ko1 16:43 Drug: Benadryl (diphenhydrAMINE) 12.5 mg Route: IVP; Site: left antecubital; ko1 17:28 Follow up: Response: No adverse reaction ko1 16:43 Drug: Ketorolac 30 mg Route: IVP; Site: left antecubital; ko1 17:28 Follow up: Response: No adverse reaction; Pain is decreased ko1 Medication: 15:00 VIS not applicable for this client. ko1 Intake: 15:15 IV: 1000ml; Total: 1000ml. ko1 17:28 IV: 1000ml; Total: 2000ml. ko1 Outcome: 16:47 Discharge ordered by . pm1 17:46 Discharged to home ambulatory, with family. ko1 17:46 Condition: improved 17:46 Discharge instructions given to patient, Instructed on discharge instructions, follow up and referral plans. Demonstrated understanding of instructions, follow-up care. 17:49 Patient left the ED. ko1 Signatures: Dispatcher [employer] Wendy Marie Audri RN RN aa5 Yogesh Galo, YOUTH COUNSELOR YOUTH COUNSELOR pm1 Sandy Montez RN RN ko1 Corrections: (The following items were deleted from the chart) 14:04 14:00 Chief complaint: Patient states: numbness to left arm and left side of face x 2 aa5 days ago. Pt also reports generalized weakness, headache, and "feeling sleepy" x 2 days ago. Pt reports abnormal MRI December 2021. aa5 15:23 14:20 Neuro: No deficits noted. ko1 ko1
[2022-03-29 18:10] VITALS: TEMP 98.2
[2022-03-29 18:17] VITALS: BP 117/75; O2SAT 99
[2022-03-29 20:36] LABS: Urine Specific Gravity/Preg 1.025 (1.005-1.030)
--- NOTE | 2022-03-30 07:56 | EKG ---
Test Date: 2022-03-29 Test Time: 14:48:01 Bulldogger: NACHO MEASUREMENT RESULTS: Intervals: Rate: 75 DE: 140 QRSD: 76 QT: 380 QTc: 424 [place]: P: 73 DE: 140 QRS: 82 T: 15 INTERPRETIVE STATEMENTS: Normal sinus rhythm Normal ECG No previous ECG available for comparison Electronically Signed On 03-30-22 07:54:21 CONTROL CABINET ASSEMBLER by George Diamond
== END 2022-03-29 17:49 | disposition home or self-care (01) ==
LOC: ER 13:53
DX: R20.2 Paresthesia of skin (principal); R42 Dizziness and giddiness; R20.0 Anesthesia of skin; R51.9 Headache, unspecified
CPT/HCPCS: 85025; 36415; 81025; 81003; 80053; 80307; 70450; 72125; J2765; J1200; J7030 ×2; 93005

== ENCOUNTER 2022-12-04 09:00 | Day surgery (SDC) | payer BC ==
[2022-12-04 09:38] VITALS: BP 129/85; TEMP 98.5; O2SAT 100; BMI 18.7
[2022-12-04] MEDS ORDERED: SOD FERRIC GLUC COMPLX/SUCROSE 250 MG in NA CHLORIDE 0.9% 250 ML IV ONE (10:00)
== END 2022-12-04 12:08 | disposition home or self-care (01) ==
LOC: DS 09:00
PROVIDERS: ATTEND Family Medicine
DX: D50.0 Iron deficiency anemia secondary to blood loss (chronic) (principal)
CPT/HCPCS: 96365; 96366; J2916; J7050